=== PATIENT | female | born 1985 | race Caucasian/White ===

== ENCOUNTER 2016-11-26 20:31 | Emergency (ER) | payer OTHER ==
[2016-11-26 20:42] VITALS: BP 120/78
[2016-11-26] MEDS ORDERED: Ketorolac 30 MG/ML SDV IM ONE (21:54)
--- NOTE | 2016-11-27 07:11 | ER ---
The patient is the source of the history. CHIEF COMPLAINT: Suprapubic pain bilaterally for 2 days. HISTORY OF PRESENT ILLNESS: The patient has a history of endometriosis and polycystic ovaries. She started her period today. Has been having pain in bilateral adnexal area. She has been using [id number] Motrin without relief. She took some oxycodone that her casino games dealer provides for her on a p.r.n. basis, again without relief and came to the ER for further evaluation. OTHER PAST MEDICAL HISTORY: Besides PCOS and endometriosis, is sleep disturbance, anxiety, agoraphobia, history of gastric bypass. CURRENT MEDICATIONS: Include iron replacement, B12 replacement, BuSpar. She has recently been on hydrocodone prescribed by Dr. Olvera for a twisted ankle. Ambien extended release and Zithromax 250 mg daily prescribed by her casino games dealer as well as oxycodone p.r.n. prescribed by her casino games dealer. REVIEW OF SYSTEMS: CONSTITUTIONAL: The patient has normal appetite. No fever or chills. EYES: No vision changes. ENT: No headache, no tinnitus, no ear pain or hearing loss. No dizziness, no sore throat. No trouble swallowing. No sores in the mouth. CARDIOVASCULAR: No skipped beats. No chest pain. No dyspnea on exertion. RESPIRATORY: No coughing, no wheezing, no shortness of breath, and no history of sleep apnea. GI: No colicky pain in the abdomen. No diarrhea. No constipation. No bloody stools. : No burning when she urinates. No frequency. No nocturia. ENDOCRINE: No goiters. No history of thyroid or adrenal gland issues. MUSCULOSKELETAL: No history of arthralgia or joint swelling. NEUROLOGIC: No weakness, no fainting, no vertigo. PSYCHIATRIC: History of anxiety, depression, and agoraphobia. HEMATOLOGIC: No issues of clotting disorders. She does have issues with anemia in the past of mixed type B12 and iron. ALLERGIC/IMMUNOLOGIC: No complaints. PHYSICAL EXAMINATION: VITAL SIGNS: Upon admission show blood pressure 120/78, pulse of 78, respirations 18, temperature 98.1, 100% saturated on room air. GENERAL: A well-developed, well-nourished white female, alert and oriented x3, in no acute distress with a flat affect. HEAD AND FACE: Normocephalic without trauma. No palpable pain of the face and sinuses. EYES: Show EOMI, PERRLA. Conjunctivae and lids are normal. ENT: Throat is clear. Nose is clear. Normal TMs bilaterally. NECK: Supple. Trachea is midline. No thyromegaly. PULMONARY: Lungs are clear. No wheezing, no coughing. CARDIOVASCULAR: Regular rate and rhythm. No murmurs, rubs, or gallops. No S3, no S4. ABDOMEN: Soft without any organomegaly. No rebound. No appreciable tenderness with palpation over adnexal or suprapubic area. Bowel sounds x4. BACK: Shows no CVA or cord tenderness. LYMPHATICS: No adenopathy. MUSCULOSKELETAL: Normal gait. Normal motion of the back and extremities. No acute inflammation of joints. NEUROLOGIC: Cranial nerves 2 through 12 are intact. No focal neurologic deficits. PSYCHIATRIC: Mood is flat, judgment is fair. Mental status is intact. Speech is clear, oriented x3. Memory is intact. ASSESSMENT: 1. Bilateral adnexal pain. 2. History of PCOS. 3. History of endometriosis. 4. History of sleep disturbance. 5. History of gastric bypass. 6. History of anxiety. 7. History of agoraphobia. PLAN: CBC, CMP, urine , and UA were obtained. UA was normal except for blood from her menses. No nitrites, no leukocytes. HCG urine was negative. CMP was normal with GFR greater than 60. CBC showed a white count of 12.7 without a shift, 55% segs, 33% lymphs, 11%, monos. H and H of 12 and 36.3, MCV of 83, RDW of 16.9, platelets of 307. The patient will be given Toradol in the emergency room of 30 mg IM. If she does not improve or gets fever or vomiting, she will return to clinic. She will call her casino games dealer in the morning to see if she can be seen later this week. I will defer pain management to her casino games dealer. KUMAR /[phone]
== END 2016-11-26 22:12 | disposition home or self-care (01) ==
LOC: LB.ED 20:31
DX: R10.2 Pelvic and perineal pain (principal); F41.9 Anxiety disorder, unspecified; Z98.84 Bariatric surgery status
CPT/HCPCS: 36415; 80053; 81001; 81025; 85025; 96372; 99284; J1885

== ENCOUNTER 2018-02-20 06:34 | Emergency (ER) | payer MEDICAID, OTHER ==
[2018-02-20] MEDS ORDERED: Acetaminophen/HYDROcodone 325-5 MG Tab ONE (06:40)
[2018-02-20] MEDS ORDERED: Morphine 2 MG/ML Syringe IVPUSH ONE ×3 (07:37→11:03)
[2018-02-20] MEDS ORDERED: diphenhydrAMINE 50 MG/ML SDV IVPUSH ONE (07:38)
[2018-02-20] MEDS ORDERED: Sodium Chloride 0.9% 500 ML IV SCH (07:45)
[2018-02-20] MEDS ORDERED: Ondansetron 4 MG/2 ML SDV IVPUSH ONE (07:49)
[2018-02-20] MEDS ORDERED: Morphine 2 MG/ML Syringe ONE ×3 (08:01→11:11)
[2018-02-20] MEDS ORDERED: diphenhydrAMINE 50 MG/ML SDV ONE (08:01)
[2018-02-20] MEDS ORDERED: Ondansetron 4 MG/2 ML SDV ONE (08:01)
[2018-02-20 10:28] VITALS: BP 159/99
[2018-02-20] MEDS ORDERED: Bupivacaine 0.5% 10 ML SDV ONE ×2 (13:00)
[2018-02-20] MEDS ORDERED: Lidocaine 1% PF 2 ML SDV ONE ×2 (13:00)
--- NOTE | 2018-02-20 13:07 | EDM.PDOC ---
ED HPI GENERAL MEDICAL PROBLEM - General Chief Complaint: General Stated Complaint: PAIN TO MY LEFT SIDE Time Seen by Provider: 02/20/18 07:20 Source of Information: Reports: Patient, Family History Limitations: Reports: No Limitations - History of Present Illness INITIAL COMMENTS - FREE TEXT/NARRATIVE: This is a 34 5/7 GA 32yo F here for excruciating pain of the left side since waking up this morning. She states the pain woke her up. She does not recall ever having this pain and states she was diagnosed with pre-eclampsia and was seen by her OB and had labs yesterday but they were all good. She states the pain is 9/10 on movement and if she lays still it is about 7/10 when not placing any pressure on the left side and laying on her right. Onset: Sudden Duration: Hour(s): Location: Reports: Abdomen Quality: Reports: Ache Severity: Severe Improves with: Reports: None Worsens with: Reports: Movement Associated Symptoms: Reports: No Other Symptoms Left Thoracic Pain Score (Numeric/FACES): 7 - Related Data Allergies Allergy/AdvReac Type Severity Reaction Status Date / Time codeine Allergy Rash Verified 02/20/18 06:51 Home Meds: Home Meds Ferrous Sulfate [Slow Fe] 45 mg PO DAILY 11/26/16 [History] Enoxaparin [Lovenox] 80 mg SUBCUT DAILY 02/20/18 [History] Metoclopramide HCl [Reglan] 10 mg PO TIDMEALS 02/20/18 [History] Vits #93/Iron Fum/FA [ Formula Tablet] 1 each PO DAILY [History] Past Medical History HEENT History: Reports: Impaired Vision, Other (See Below) Other HEENT History: wears eye glasses Cardiovascular History: Reports: Other (See Below) Other Cardiovascular History: Only had hypertension at this time with due to pre-eclampsia Respiratory History: Reports: None Gastrointestinal History: Reports: Other (See Below) Other Gastrointestinal History: gastric bypass Genitourinary History: Reports: None FOUNTAIN SUPERVISOR History: Reports: Endometriosis, Polycystic Ovaries, , Other ( See Below) Other FOUNTAIN SUPERVISOR History: 2 miscarriages; 4 endometrial excisions; 3 other surgeries for endometriosis Musculoskeletal History: Reports: Other (See Below) Other Musculoskeletal History: 2 wrist surgeries Psychiatric History: Reports: Anxiety, Depression, Panic Attack Endocrine/Metabolic History: Reports: None Hematologic History: Reports: B12 Deficiency Oncologic (Cancer) History: Reports: None - Infectious Disease History Infectious Disease History: Reports: Chicken Pox - Past Surgical History HEENT Surgical History: Reports: None GI Surgical History: Reports: Bariatric Procedure Musculoskeletal Surgical History: Reports: Other (See Below) Other Musculoskeletal Surgeries/Procedures:: Left wrist, Bunion on both feet Social & Family History - Family History Family Medical History: Noncontributory - Tobacco Use Smoking Status *Q: Never Smoker Second Hand Smoke Exposure: No - Caffeine Use Caffeine Use: Reports: Coffee, Soda - Recreational Drug Use Recreational Drug Use: No ED ROS GENERAL - Review of Systems Review Of Systems: ROS reveals no pertinent complaints other than HPI. ED EXAM, GENERAL - Physical Exam Exam: See Below Exam Limited By: No Limitations General Appearance: Alert, WD/WN, Moderate Distress Eye Exam: Bilateral Eye: EOMI, PERRL Ears: Normal External Exam Nose: Normal Inspection Throat/Mouth: Normal Inspection Head: Atraumatic, Normocephalic Neck: Normal Inspection Respiratory/Chest: No Respiratory Distress, Lungs Clear, Normal Breath Sounds, Other (rib pain of the 9th and 10th ribs and lower areas of the ribs) Cardiovascular: Normal Peripheral Pulses GI/Abdominal: Normal Bowel Sounds Back Exam: Normal Inspection Extremities: Normal Inspection Neurological: Alert, Oriented Psychiatric: Normal Affect, Normal Mood Skin Exam: Warm, Dry, Intact ED GENERAL MEDICAL PROCEDURES - Additional/Other Procedure(s) Other (Free Text) Procedure(s): Left lateral ribs prepped sterilely and Intercostal nerve block with 2x( 2mL lidocaine 1% 2mL marcaine-0.5% 2mL kenalog 40mg/mL) at ribs 9 and 10 injected with some relief. Patient states she still has some deeper pain with movement. No complications. Course - Vital Signs Last Recorded V/S: Last Vital Signs Temp 36.7 C 02/20/18 06:48 Pulse 94 02/20/18 10:27 Resp 16 02/20/18 08:45 BP 159/99 H 02/20/18 10:27 Pulse Ox 97 02/20/18 10:27 - Orders/Labs/Meds Orders: Active Orders 24 hr Category Date Time Status URINALYSIS W/MICROSCOPIC [UA W/MICROSCOPIC] [URIN] Stat Lab 02/20/18 09:48 Ordered Labs: Laboratory Tests 02/20/18 02/20/18 02/20/18 Range/Units 07:15 07:15 09:48 WBC 15.1 H (4.0-11.0) K/uL RBC 4.39 (3.80-5.80) M/uL Hgb 12.0 (11.5-16.5) g/dL Hct 37.7 (37.0-47.0) % MCV 86 (76-96) fL MCH 27.3 (27.0-32.0) pg MCHC 31.8 (31.0-35.0) g/dL RDW 14.9 (11.0-16.0) % Plt Count 278 (150-500) K/uL MPV 9.1 (6.0-10.0) fL Neut % (Auto) 66.9 (45.0-70.0) % Lymph % (Auto) 21.8 (20.0-40.0) % [place] % (Auto) 10.9 H (3.0-10.0) % Eos % (Auto) 0.3 L (1.0-5.0) % Baso % (Auto) 0.1 (0.0-0.5) % Neut # (Auto) 10.08 H (2.00-7.50) K/uL Lymph # (Auto) 3.29 (1.50-4.00) K/uL [place] # (Auto) 1.65 H (0.20-0.80) K/uL Eos # (Auto) 0.04 (0.04-0.40) K/uL Baso # (Auto) 0.01 L (0.02-0.10) K/uL Sodium 138 (136-145) mmol/L Potassium 3.3 L (3.5-5.1) mmol/L Chloride 106 (98-107) mmol/L Carbon Dioxide 20.8 L D (21.0-32.0) mmol/L Anion Gap 14.5 (5.0-15.0) mmol/L BUN 7 L D (8-26) mg/dL Creatinine 0.95 D (0.55-1.02) mg/dL Est Cr Clr Drug Dosing TNP Estimated GFR (MDRD) > 60 (>60) MLS/MIN BUN/Creatinine Ratio 7.4 (6-25) Glucose 107 H (74-100) mg/dL Calcium 8.1 L (8.5-10.1) mg/dL Total Bilirubin 0.2 D (0.0-1.0) mg/dL AST 18 (15-37) U/L ALT 12 (12-78) U/L Alkaline Phosphatase 158 H (46-116) U/L Troponin I < 0.017 (0.000-0.060) ng/mL Total Protein 6.3 L (6.4-8.2) g/dL Albumin 1.9 L (3.4-5.0) g/dL Globulin 4.4 H (2.2-4.2) g/dL Albumin/Globulin Ratio 0.4 L (0.8-2.0) Urine Color Yellow Urine Appearance Clear (CLEAR) Urine pH 6.0 (5.0-8.0) Ur Specific [place] 1.010 (1.003-1.030) Urine Protein Negative (NEGATIVE) mg/dL Urine Glucose (UA) Negative (NEGATIVE) mg/dL Urine Ketones Negative (NEGATIVE) mg/dL Urine Occult Blood Negative (NEGATIVE) Urine Nitrite Negative (NEGATIVE) Urine Bilirubin Negative (NEGATIVE) Urine Urobilinogen 0.2 (0.2-1.0) E.U./dL Ur Leukocyte Esterase Negative (NEGATIVE) Urine RBC Not seen /HPF Urine WBC 0-5 H /HPF Ur Squamous Epith Cells Moderate /HPF Urine Bacteria Few /HPF Hyaline Casts Occasional /HPF Meds: Medications Discontinued Medications Generic Name Dose Route Start Last Admin Trade Name Nabil PRN Reason Stop Dose Admin Diphenhydramine HCl 25 mg 02/20/18 07:38 02/20/18 08:05 Benadryl IVPUSH 02/20/18 07:39 25 mg ONETIME ONE Administration Diphenhydramine HCl Confirm 02/20/18 08:01 02/20/18 08:11 Benadryl Administered 02/20/18 08:02 Not Given Dose 50 mg .ROUTE .STK-MED ONE Sodium Chloride 500 mls @ 999 mls/hr 02/20/18 07:45 02/20/18 07:46 Normal Saline IV 999 mls/hr ASDIRECTED SALLY Administration Morphine Sulfate 2 mg 02/20/18 07:37 02/20/18 08:00 Morphine IVPUSH 02/20/18 07:38 2 mg ONETIME ONE Administration Morphine Sulfate Confirm 02/20/18 08:01 02/20/18 08:11 Morphine Administered 02/20/18 08:02 Not Given Dose 2 mg .ROUTE .STK-MED ONE Morphine Sulfate 2 mg 02/20/18 08:23 02/20/18 08:26 Morphine IVPUSH 02/20/18 08:24 2 mg ONETIME ONE Administration Morphine Sulfate Confirm 02/20/18 08:29 02/20/18 08:31 Morphine Administered 02/20/18 08:30 Not Given Dose 2 mg .ROUTE .STK-MED ONE Morphine Sulfate 2 mg 02/20/18 11:03 02/20/18 11:12 Morphine IVPUSH 02/20/18 11:04 2 mg ONETIME ONE Administration Morphine Sulfate Confirm 02/20/18 11:11 02/20/18 11:12 Morphine Administered 02/20/18 11:12 Not Given Dose 2 mg .ROUTE .STK-MED ONE Ondansetron HCl 4 mg 02/20/18 07:49 02/20/18 08:14 Zofran IVPUSH 02/20/18 07:50 4 mg ONETIME ONE Administration Ondansetron HCl Confirm 02/20/18 08:01 02/20/18 08:11 Zofran Administered 02/20/18 08:02 Not Given Dose 4 mg .ROUTE .STK-MED ONE - Re-Assessments/Exams Free Text/Narrative Re-Assessment/Exam: Mild improvement with morphine. Trial of intercostal nerve block x 2 ribs showed improved ability for deeper breathing. Departure - Departure Time of Disposition: 11:30 Disposition: Home, Self-Care 01 Condition: Undetermined Clinical Impression: Intercostal muscle pain - Discharge Information Referrals: Lew Carreon DO [Primary Care Provider] - Forms: ED Department Discharge Additional Instructions: - May Take Vicoin one tablet every 6 hours for pain. - Follow up with OB provider at [facility], call first before going there. Counseled on close monitoring. Discussed intercostal muscle strain vs fractured ribs. F/u in ER as needed and f/u with PCP and OB provider as directed. - Problem List & Annotations (1) Intercostal muscle pain SNOMED Code(s): 53323213 Code(s): M79.1 - MYALGIA Status: Acute Priority: High - Problem List Review Problem List Initiated/Reviewed/Updated: Yes - My Orders Last 24 Hours: My Active Orders 02/20/18 09:48 URINALYSIS W/MICROSCOPIC [UA W/MICROSCOPIC] [URIN] Stat - Assessment/Plan Last 24 Hours: My Active Orders 02/20/18 09:48 URINALYSIS W/MICROSCOPIC [UA W/MICROSCOPIC] [URIN] Stat Plan: Patient counseled on labs, urinalysis, FHR, and pain management.
== END 2018-02-20 13:15 | disposition home or self-care (01) ==
LOC: LB.ED 06:34
DX: M79.1 Myalgia (principal); R07.82 Intercostal pain; Z88.5 Allergy status to narcotic agent; Z79.899 Other long term (current) drug therapy
CPT/HCPCS: 36415; 64420; 80053; 81001; 84484; 85025; 93005; 96361; 96374; 96375; 96376; 99282; 99285-25; A9270-GY; J1200; J2001; J2270; J2405; J3490; J7030

== ENCOUNTER 2018-08-31 09:45 | Emergency (ER) | payer BC ==
[2018-08-31] MEDS ORDERED: Ketorolac 30 MG/ML SDV IVPUSH PRN (10:10)
[2018-08-31] MEDS: Sodium Chloride 0.9% 10 ML Syringe FLUSH PRN ×3 (10:20→12:07)
--- NOTE | 2018-08-31 10:41 | EDM.PDOC ---
ED HPI GENERAL MEDICAL PROBLEM - General Chief Complaint: General Stated Complaint: uterus pain Time Seen by Provider: 08/31/18 10:00 Source of Information: Reports: Patient History Limitations: Reports: No Limitations - History of Present Illness INITIAL COMMENTS - FREE TEXT/NARRATIVE: This is a 32yo F here for abdominal pain. Patient has had prior abdominal pain like this due to her endometriosis. She has had 9 prior laparoscopic procedures for her endometriosis. She states that she did well on her OCP but a few months ago stopped as they were trying to conceive. She did ok with her oral pain medications the past few days but last night until today the pain would not improve. Onset: Gradual Duration: Day(s):, Constant, Getting Worse Location: Reports: Abdomen, Pelvis Quality: Reports: Pressure, Sharp, Stabbing Improves with: Reports: None Worsens with: Reports: None Associated Symptoms: Reports: No Other Symptoms - Related Data Allergies Allergy/AdvReac Type Severity Reaction Status Date / Time codeine Allergy Rash Verified 02/20/18 06:51 Home Meds: Home Meds Ferrous Sulfate [Slow Fe] 300 mg PO DAILY 11/26/16 [History] Cyanocobalamin (Vitamin B-12) [Cyanocobalamin Injection] 1,000 mcg IM ASDIRECTED 08/31/18 [History] Mirtazapine 30 mg PO DAILY 08/31/18 [History] Zolpidem Tartrate [Zolpidem Tartrate ER] 6.25 mg PO DAILY 08/31/18 [History] buPROPion [buPROPion XL] 150 mg PO DAILY 08/31/18 [History] Past Medical History HEENT History: Reports: Impaired Vision, Other (See Below) Other HEENT History: wears eye glasses Cardiovascular History: Reports: Other (See Below) Other Cardiovascular History: Only had hypertension at this time with due to pre-eclampsia Respiratory History: Reports: None Gastrointestinal History: Reports: Other (See Below) Other Gastrointestinal History: gastric bypass Genitourinary History: Reports: None HYDRAULIC TESTER History: Reports: Endometriosis, Polycystic Ovaries, , Other ( See Below) Other HYDRAULIC TESTER History: 2 miscarriages; 4 endometrial excisions; 3 other surgeries for endometriosis Musculoskeletal History: Reports: Other (See Below) Other Musculoskeletal History: 2 wrist surgeries Psychiatric History: Reports: Anxiety, Depression, Panic Attack Endocrine/Metabolic History: Reports: None Hematologic History: Reports: B12 Deficiency Oncologic (Cancer) History: Reports: None - Infectious Disease History Infectious Disease History: Reports: Chicken Pox - Past Surgical History HEENT Surgical History: Reports: None GI Surgical History: Reports: Bariatric Procedure Musculoskeletal Surgical History: Reports: Other (See Below) Other Musculoskeletal Surgeries/Procedures:: Left wrist, Bunion on both feet Social & Family History - Family History Family Medical History: Noncontributory - Caffeine Use Caffeine Use: Reports: Coffee, Soda ED ROS GENERAL - Review of Systems Review Of Systems: ROS reveals no pertinent complaints other than HPI. Constitutional: Reports: No Symptoms HEENT: Reports: No Symptoms Respiratory: Reports: No Symptoms Cardiovascular: Reports: No Symptoms Endocrine: Reports: No Symptoms GI/Abdominal: Reports: Abdominal Pain : Reports: No Symptoms Musculoskeletal: Reports: No Symptoms Skin: Reports: No Symptoms ED EXAM, GENERAL - Physical Exam Exam: See Below Exam Limited By: No Limitations General Appearance: Alert, WD/WN, Moderate Distress Eye Exam: Bilateral Eye: EOMI, PERRL Ears: Normal External Exam Nose: Normal Inspection Throat/Mouth: Normal Inspection Head: Atraumatic, Normocephalic Neck: Normal Inspection Respiratory/Chest: No Respiratory Distress, Lungs Clear, Normal Breath Sounds Cardiovascular: Normal Peripheral Pulses, Regular Rate, Rhythm GI/Abdominal: Normal Bowel Sounds, Soft, Tender (lower abdomen and pelvic region ) Back Exam: Normal Inspection Course - Vital Signs Last Recorded V/S: Last Vital Signs Temp 37.1 C 08/31/18 10:46 Pulse 119 H 08/31/18 10:46 Resp 16 08/31/18 10:46 BP 147/78 H 08/31/18 10:46 Pulse Ox 100 08/31/18 10:46 - Orders/Labs/Meds Orders: Active Orders 24 hr Category Date Time Status HYDROmorphone [Dilaudid] Med 08/31/18 11:12 Active 2 mg IVPUSH Q4H PRN Ketorolac [Toradol] Med 08/31/18 10:10 Active 30 mg IVPUSH Q8H PRN Sodium Chloride 0.9% [Saline Flush] Med 08/31/18 10:09 Active 10 ml FLUSH ASDIRECTED PRN Peripheral IV Insertion Adult [OM.PC] Routine Oth 08/31/18 10:09 Ordered Medication Orders Hydromorphone HCl (Dilaudid) 2 mg IVPUSH Q4H PRN PRN Reason: Pain Last Admin: 08/31/18 11:05 Dose: 2 mg Ketorolac Tromethamine (Toradol) 30 mg IVPUSH Q8H PRN PRN Reason: Pain Stop: 09/05/18 10:10 Last Admin: 08/31/18 10:23 Dose: 30 mg Sodium Chloride (Saline Flush) 10 ml FLUSH ASDIRECTED PRN PRN Reason: Keep Vein Open Last Admin: 08/31/18 12:07 Dose: 10 ml Admin: 08/31/18 10:25 Dose: 10 ml Admin: 08/31/18 10:20 Dose: 10 ml Labs: Laboratory Tests 08/31/18 08/31/18 Range/Units 10:02 10:02 WBC 12.2 H (4.0-11.0) K/uL RBC 4.04 (3.80-5.80) M/uL Hgb 10.1 L (11.5-16.5) g/dL Hct 32.3 L (37.0-47.0) % MCV 80 (76-96) fL MCH 25.0 L (27.0-32.0) pg MCHC 31.3 (31.0-35.0) g/dL RDW 16.0 (11.0-16.0) % Plt Count 422 (150-500) K/uL MPV 8.4 (6.0-10.0) fL Neut % (Auto) 67.8 (45.0-70.0) % Lymph % (Auto) 20.2 (20.0-40.0) % [place] % (Auto) 9.6 (3.0-10.0) % Eos % (Auto) 2.1 (1.0-5.0) % Baso % (Auto) 0.3 (0.0-0.5) % Neut # (Auto) 8.27 H (2.00-7.50) K/uL Lymph # (Auto) 2.46 (1.50-4.00) K/uL [place] # (Auto) 1.17 H (0.20-0.80) K/uL Eos # (Auto) 0.25 (0.04-0.40) K/uL Baso # (Auto) 0.04 (0.02-0.10) K/uL Sodium 142 (136-145) mmol/L Potassium 4.0 (3.5-5.1) mmol/L Chloride 103 (98-107) mmol/L Carbon Dioxide 25.5 (21.0-32.0) mmol/L Anion Gap 17.5 H (5.0-15.0) mmol/L BUN 7 L D (8-26) mg/dL Creatinine 0.71 (0.55-1.02) mg/dL Est Cr Clr Drug Dosing TNP Estimated GFR (MDRD) > 60 (>60) MLS/MIN BUN/Creatinine Ratio 9.9 (6-25) Glucose 103 H (74-100) mg/dL Calcium 8.1 L (8.5-10.1) mg/dL Total Bilirubin 0.1 D (0.0-1.0) mg/dL AST 13 L (15-37) U/L ALT 23 (12-78) U/L Alkaline Phosphatase 141 H (46-116) U/L Total Protein 6.8 (6.4-8.2) g/dL Albumin 3.1 L (3.4-5.0) g/dL Globulin 3.7 (2.2-4.2) g/dL Albumin/Globulin Ratio 0.8 (0.8-2.0) Lipase 173 (73-393) U/L Meds: Medications Generic Name Dose Route Start Last Admin Trade Name Freq PRN Reason Stop Dose Admin Hydromorphone HCl 2 mg 08/31/18 11:12 08/31/18 11:05 Dilaudid IVPUSH 2 mg Q4H PRN Administration Pain Ketorolac Tromethamine 30 mg 08/31/18 10:10 08/31/18 10:23 Toradol IVPUSH 09/05/18 10:10 30 mg Q8H PRN Administration Pain Sodium Chloride 10 ml 08/31/18 10:09 08/31/18 12:07 Saline Flush FLUSH 10 ml ASDIRECTED PRN Administration Keep Vein Open Discontinued Medications Generic Name Dose Route Start Last Admin Trade Name Freq PRN Reason Stop Dose Admin Hydromorphone HCl Confirm 08/31/18 11:06 08/31/18 11:14 Dilaudid Administered 08/31/18 11:07 Not Given Dose 2 mg .ROUTE .STK-MED ONE Hydromorphone HCl 2 mg 08/31/18 11:58 08/31/18 12:06 Dilaudid IVPUSH 08/31/18 11:59 2 mg ONETIME ONE Administration Hydromorphone HCl Confirm 08/31/18 12:03 Dilaudid Administered 08/31/18 12:04 Dose 2 mg .ROUTE .STK-MED ONE Hydromorphone HCl Confirm 08/31/18 12:41 Dilaudid Administered 08/31/18 12:42 Dose 2 mg .ROUTE .STK-MED ONE Hydromorphone HCl 2 mg 08/31/18 12:42 08/31/18 12:43 Dilaudid IVPUSH 08/31/18 12:43 2 mg ONETIME ONE Administration Departure - Departure Time of Disposition: 13:02 Disposition: Home, Self-Care 01 Condition: Fair Clinical Impression: Endometriosis determined by laparoscopy, Pelvic pain - Discharge Information Instructions: Oxycodone tablets or capsules Referrals: PCP,None [Primary Care Provider] - Forms: ED Department Discharge Care Plan Goals: Keep appointment with HYDRAULIC TESTER doc as planned. Take oxycodone that you have and can use those dispensed when you run out. Call clinic for Rx on saturday. - Problem List & Annotations (1) Endometriosis of pelvis SNOMED Code(s): 51835680 Code(s): N80.3 - ENDOMETRIOSIS OF PELVIC PERITONEUM Status: Acute Priority: High Current Visit: Yes (2) Endometriosis determined by laparoscopy SNOMED Code(s): 355838491 Code(s): N80.9 - ENDOMETRIOSIS, UNSPECIFIED Status: Acute Priority: High Current Visit: Yes (3) Pelvic pain SNOMED Code(s): 93225965 Code(s): R10.2 - PELVIC AND PERINEAL PAIN Status: Acute Priority: High Current Visit: Yes - Problem List Review Problem List Initiated/Reviewed/Updated: Yes - My Orders Last 24 Hours: My Active Orders 08/31/18 10:09 Sodium Chloride 0.9% [Saline Flush] 10 ml FLUSH ASDIRECTED PRN Peripheral IV Insertion Adult [OM.PC] Routine 08/31/18 10:10 Ketorolac [Toradol] 30 mg IVPUSH Q8H PRN 08/31/18 11:12 HYDROmorphone [Dilaudid] 2 mg IVPUSH Q4H PRN - Assessment/Plan Last 24 Hours: My Active Orders 08/31/18 10:09 Sodium Chloride 0.9% [Saline Flush] 10 ml FLUSH ASDIRECTED PRN Peripheral IV Insertion Adult [OM.PC] Routine 08/31/18 10:10 Ketorolac [Toradol] 30 mg IVPUSH Q8H PRN 08/31/18 11:12 HYDROmorphone [Dilaudid] 2 mg IVPUSH Q4H PRN Plan: Patient counseled on supportive and conservative care. Patient to continue on her oral liquid oxycodone at at higher dose as directed and percocet if she runs out. F/u tomorrow in clinic for a refill prescription and close monitoring. Patient to continue f/u with her OB specialist on Sep 09. Discussed rtc or ER as needed.
[2018-08-31] MEDS ORDERED: Acetaminophen/oxyCODONE 325-5 MG Tab ONE (10:50)
[2018-08-31] MEDS ORDERED: HYDROmorphone 2 MG/ML Syringe ONE ×3 (11:06→12:41)
[2018-08-31] MEDS ORDERED: HYDROmorphone 4 MG/ML Syringe IVPUSH PRN (11:12)
[2018-08-31] MEDS ORDERED: HYDROmorphone 2 MG/ML Syringe IVPUSH ONE ×2 (11:58→12:42)
[2018-08-31 19:04] VITALS: BP 111/75
== END 2018-08-31 12:45 | disposition home or self-care (01) ==
LOC: LB.ED 09:45
DX: N80.3 Endometriosis of pelvic peritoneum (principal); E28.2 Polycystic ovarian syndrome; F41.9 Anxiety disorder, unspecified; F32.9 Major depressive disorder, single episode, unspecified; F41.0 Panic disorder [episodic paroxysmal anxiety]; E53.8 Deficiency of other specified B group vitamins; Z98.84 Bariatric surgery status; Z98.890 Other specified postprocedural states; Z79.899 Other long term (current) drug therapy; Z88.5 Allergy status to narcotic agent
CPT/HCPCS: 36415; 80053; 83690; 85025; 96374; 96375; 96376; 99284; A9270; J1170; J1885

== ENCOUNTER 2019-01-28 18:56 | Emergency (ER) | payer BC ==
[2019-01-28] MEDS ORDERED: Acetaminophen/oxyCODONE 325-5 MG Tab ONE (19:00)
--- NOTE | 2019-01-30 10:59 | ER ---
REASON FOR EMERGENCY ROOM VISIT: Lower abdominal pain with history of endometriosis. HISTORY OF PRESENT ILLNESS: This 33-year-old woman has had a longstanding history of significant difficulties related to her endometriosis. These difficulties have necessitated numerous operations in the past. She last saw Dr. Olvera for pain related to her diverticulosis manifested by pelvic pain, which is her usual manifestation. She has had her endometriosis since the age of 17. When she saw Dr[address] Olvera 5 days ago, she was given a prescription for 50 tablets of hydrocodone. She states that it worked quite well over the weekend, but throughout the day today, it did not seem to be helping her very much and pain has been largely untouched. She has not had any nausea or vomiting. Denies any fever, diarrhea, or constipation. She does not have any irritative voiding symptoms or dysuria. Her pain is in her lower pelvic area. It is located in the midline and slightly to the left of the midline. Her last normal menstrual period was on Saturday. She is not on any oral contraceptives and they are not using any control, as she is trying to get . She is 1, para 1. She has not had any fever or chills. She and her are contemplating continuing to try to conceive versus hysterectomy because of the pain. PAST MEDICAL HISTORY: Significant for: 1. Laparoscopic surgery x3 for ablation with cautery. 2. History of nerve ablation for pelvic pain. 3. D and C x2. 4. Uterine "rupture" following her last delivery in February. 5. 1, para 1. MEDICATIONS: Her medications at this time include hydrocodone, Wellbutrin, mirtazapine, and Ambien. ALLERGIES: NONE TO MEDICATIONS. REVIEW OF SYSTEMS: All pertinent positives and negatives as listed in the HPI. PHYSICAL EXAMINATION: GENERAL: She is a pleasant woman, who appears to be somewhat uncomfortable, but certainly in no acute distress. HEENT: No scleral icterus is noted. Oropharynx is normal. Neck is supple. No adenopathy. No adenopathy. Chest is clear to auscultation. CARDIAC: Regular rate without murmur. Abdomen is nondistended. Bowel sounds are present. Her abdomen is soft. Superficial and deep palpation with no guarding, rebound, or percussion tenderness. She was only mildly uncomfortable to deep palpation. A pelvic examination was not performed. EXTREMITIES: Unremarkable with normal pulses. No edema. SKIN: No rashes. IMPRESSION: Pelvic pain secondary to endometriosis. PLAN: She has taken oxycodone in the past when she has had breakthrough pain from this and we will go ahead and give her oxycodone 5 mg with acetaminophen, dispense #10, one every 4 hours p.r.n. pain. She knows that should she run out of these over the next couple of days, she can go ahead and take 2 hydrocodone if needed every 4 hours, but not take these along with oxycodone. She understands this. She assured me that she can get in to see her physician, Dr. Olvera, on Saturday (day after tomorrow). All questions were answered. They understand and agree with this plan. DAMIEN /[id number] MY
== END 2019-01-28 19:25 | disposition home or self-care (01) ==
LOC: LB.ED 18:56
DX: N80.9 Endometriosis, unspecified (principal)
CPT/HCPCS: 99283; A9270

== ENCOUNTER 2019-02-21 08:53 | Emergency (ER) | payer BC ==
[2019-02-21 09:07] VITALS: BP 96/55; PULSE 91
[2019-02-21] MEDS ORDERED: Ondansetron 4 MG Tab.DIS PO ONE (09:25)
[2019-02-21] MEDS ORDERED: Ketorolac 60 MG/2 ML SDV IM ONE (09:25)
[2019-02-21] MEDS ORDERED: Acetaminophen/HYDROcodone 325-5 MG Tab ONE (09:30)
[2019-02-21] MEDS ORDERED: Ketorolac 10 MG Tab ONE ×2 (09:30→09:38)
[2019-02-21] MEDS ORDERED: Ondansetron 4 MG Tab.DIS ONE ×2 (09:30→09:35)
[2019-02-21] MEDS ORDERED: Ketorolac 60 MG/2 ML SDV ONE (09:35)
--- NOTE | 2019-02-21 09:41 | EDM.PDOC ---
ED HPI GENERAL MEDICAL PROBLEM - General Chief Complaint: Abdominal Pain Stated Complaint: Lower Abdominal Pain Time Seen by Provider: 02/21/19 09:00 Source of Information: Reports: Patient History Limitations: Reports: No Limitations - History of Present Illness INITIAL COMMENTS - FREE TEXT/NARRATIVE: Pt is a 33 year old female with history of endometriosis and adenomyosis for past several years now. She claims her periods are very painful. She takes vicodin 10/365 every 6 hrs as needed with her periods. But she has run out of her pain meds. Has been feeling nausea when the pain gets intense. Tares her pain at 8/10 now in the emergency room.She started her periods yesterday, the pain she is having is similar to her previous periods, but is more intense because of her not having pain meds. Pt's INSPECTOR SHELLS is Dr.Bass calvillo [place], [place], and her PCP is who manages her pain meds. Onset Date: 02/20/19 Duration: Getting Worse, Intermittent, Waxing/Waning Location: Reports: Pelvis Quality: Reports: Ache Severity: Moderate Improves with: Reports: Medication Worsens with: Reports: None Associated Symptoms: Denies: Confusion, Chest Pain, Cough, Diaphoresis, Fever/ Chills, Nausea/Vomiting, Rash, Seizure, Shortness of Breath, Syncope, Weakness Treatments OIL WELL GUN PERFORATOR OPERATOR: Reports: Other (see below) Other Treatments OIL WELL GUN PERFORATOR OPERATOR: warm pack to abdomen; Vicodin - Related Data Allergies Allergy/AdvReac Type Severity Reaction Status Date / Time codeine Allergy Rash Verified 02/21/19 09:00 Home Meds: Home Meds Aspirin 81 mg PO DAILY 08/31/18 [History] Cyanocobalamin (Vitamin B-12) [Cyanocobalamin Injection] 1,000 mcg IM ASDIRECTED 08/31/18 [History] LORazepam 1 mg PO BID PRN 08/31/18 [History] Mirtazapine 30 mg PO QPM 08/31/18 [History] Zolpidem Tartrate [Zolpidem Tartrate ER] 6.25 mg PO QPM 08/31/18 [History] Ferrous Sulfate [Slow Fe] 142 mg PO TID 02/21/19 [History] Hydrocodone/Acetaminophen [Hydrocodon-Acetaminophn 10-325] 1 - 2 tab PO Q4H PRN 02/21/19 [History] PNV95/Ferrous Fumarate/FA [ Tablet] 1 each PO DAILY 02/21/19 [History] buPROPion HCl [Wellbutrin Xl] 300 mg PO DAILY 02/21/19 [History] Past Medical History HEENT History: Reports: Impaired Vision, Other (See Below) Other HEENT History: wears eye glasses Cardiovascular History: Reports: Other (See Below) Other Cardiovascular History: hypertension due to pre-eclampsia Respiratory History: Reports: None Other Respiratory History: history of pulmonary embolism while Gastrointestinal History: Reports: None Other Gastrointestinal History: gastric bypass Genitourinary History: Reports: None IMPOSER History: Reports: Endometriosis, Polycystic Ovaries, , Other ( See Below) Other IMPOSER History: 2 miscarriages Musculoskeletal History: Reports: Other (See Below) Other Musculoskeletal History: 2 wrist surgeries Psychiatric History: Reports: Anxiety, Depression, Panic Attack Other Psychiatric History: Major depressive disorder, recurrent, Panic disorder with agoraphobia, ADHD predominantly inattentive type Endocrine/Metabolic History: Reports: None Hematologic History: Reports: Anemia, B12 Deficiency Other Hematologic History: Serpine1 4G/5G genotype, 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 Oncologic (Cancer) History: Reports: None Dermatologic History: Reports: Eczema - Infectious Disease History Infectious Disease History: Reports: Chicken Pox - Past Surgical History HEENT Surgical History: Reports: None Cardiovascular Surgical History: Reports: None GI Surgical History: Reports: Bariatric Procedure Female Surgical History: Reports: Endometrial Ablation Musculoskeletal Surgical History: Reports: Other (See Below) Other Musculoskeletal Surgeries/Procedures:: Left wrist, Bunion on both feet Social & Family History - Family History Family Medical History: Noncontributory - Caffeine Use Caffeine Use: Reports: Coffee, Soda ED ROS GENERAL - Review of Systems Review Of Systems: See Below Constitutional: Denies: Fever, Chills, Weakness HEENT: Denies: Rhinitis, Throat Pain Respiratory: Denies: Shortness of Breath, Pleuritic Chest Pain, Cough, Sputum Cardiovascular: Denies: Chest Pain, Lightheadedness GI/Abdominal: Reports: Abdominal Pain. Denies: Nausea, Vomiting : Denies: Dysuria, Frequency Skin: Denies: Bruising, Pruritis, Rash ED EXAM, GENERAL - Physical Exam Exam: See Below Exam Limited By: No Limitations General Appearance: Alert, WD/WN, No Apparent Distress Eye Exam: Bilateral Eye: EOMI, PERRL Ears: Normal External Exam, Normal Canal, Hearing Grossly Normal, Normal TMs Ear Exam: Bilateral Ear: Auricle Normal, Canal Normal, TM normal Nose: Normal Inspection, Normal Mucosa, No Blood Throat/Mouth: Normal Inspection, Normal Lips, Normal Teeth, Normal Gums, Normal Oropharynx, Normal Voice, No Airway Compromise Head: Atraumatic, Normocephalic Neck: Normal Inspection, Supple, Non-Tender, Full Range of Motion Respiratory/Chest: No Respiratory Distress, Lungs Clear, Normal Breath Sounds, No Accessory Muscle Use, Chest Non-Tender Cardiovascular: Normal Peripheral Pulses, Regular Rate, Rhythm, No Edema, No Gallop, No JVD, No Murmur, No Rub GI/Abdominal: Normal Bowel Sounds, Soft, Non-Tender, No Organomegaly, No Distention, No Abnormal Bruit, No Mass (Female) Exam: Other (deferred as she is on her periods.) Course - Vital Signs Text/Narrative:: 33 year old female has history of adenomyosis and endometriosis for years. Her symptoms occur with every periods. Painful for 3-4 days every month. She has run out of her meds. Clinical exam is stable. Rates her cramps at 8/10 now. She did receive Toradol 60mg IM and zofran 4mg S/l for her pain. Also she has been sent home on toradol 10mg every 8 hrs as needed for pain. Zofran 4mg as needed for nausea. Also she was given vicodin 5/325 to use one every 6 hrs as needed for sever pain. If she is in such severe pain she has moderate to severe endometriosis. I have advised her to followup with her OB-account receivable associate and discuss other options including antihormonal therapy for endometriosis. Pt understands and agrees with plan. Last Recorded V/S: Last Vital Signs Temp 98.3 F 02/21/19 09:06 Pulse 91 02/21/19 09:06 Resp 18 02/21/19 09:06 BP 96/55 L 02/21/19 09:06 Pulse Ox 99 02/21/19 09:06 - Orders/Labs/Meds Meds: Medications Discontinued Medications Generic Name Dose Route Start Last Admin Trade Name Freq PRN Reason Stop Dose Admin Ketorolac Tromethamine 60 mg 02/21/19 09:25 Toradol IM 07/27/19 09:26 ONETIME ONE Ketorolac Tromethamine Confirm 02/21/19 09:35 Toradol Administered 02/21/19 09:36 Dose 60 mg .ROUTE .STK-MED ONE Ondansetron HCl 4 mg 02/21/19 09:25 Zofran Odt PO 02/21/19 09:26 ONETIME ONE Ondansetron HCl Confirm 02/21/19 09:35 Zofran Odt Administered 02/21/19 09:36 Dose 4 mg .ROUTE .STK-MED ONE Departure - Departure Time of Disposition: 09:50 Disposition: Home, Self-Care 01 Condition: Fair Clinical Impression: Endometriosis - Discharge Information Referrals: PCP,None [Primary Care Provider] - Additional Instructions: 33 year old female has history of adenomyosis and endometriosis for years. Her symptoms occur with every periods. Painful for 3-4 days every month. She has run out of her meds. Clinical exam is stable. Rates her cramps at 8/10 now. She did receive Toradol 60mg IM and zofran 4mg S/l for her pain. Also she has been sent home on toradol 10mg every 8 hrs as needed for pain. Zofran 4mg as needed for nausea. Also she was given vicodin 5/325 to use one every 6 hrs as needed for severe pain. If she is in such severe pain she has moderate to severe endometriosis. I have advised her to followup with her OB-account receivable associate and discuss other options including antihormonal therapy for endometriosis. Pt understands and agrees with plan. - Problem List & Annotations (1) Endometriosis of pelvis SNOMED Code(s): 61182821 Code(s): N80.3 - ENDOMETRIOSIS OF PELVIC PERITONEUM Status: Acute Priority: High Current Visit: No - Problem List Review Problem List Initiated/Reviewed/Updated: Yes - Assessment/Plan Assessment:: Endometriosis Plan: 33 year old female has history of adenomyosis and endometriosis for years. Her symptoms occur with every periods. Painful for 3-4 days every month. She has run out of her meds. Clinical exam is stable. Rates her cramps at 8/10 now. She did receive Toradol 60mg IM and zofran 4mg S/l for her pain. Also she has been sent home on toradol 10mg every 8 hrs as needed for pain. Zofran 4mg as needed for nausea. Also she was given vicodin 5/325 to use one every 6 hrs as needed for sever pain. If she is in such severe pain she has moderate to severe endometriosis. I have advised her to followup with her OB-account receivable associate and discuss other options including antihormonal therapy for endometriosis. Pt understands and agrees with plan.
== END 2019-02-21 09:51 | disposition home or self-care (01) ==
LOC: LB.ED 08:53
DX: N80.9 Endometriosis, unspecified (principal); F41.9 Anxiety disorder, unspecified; F32.9 Major depressive disorder, single episode, unspecified; Z79.82 Long term (current) use of aspirin; Z79.899 Other long term (current) drug therapy; Z88.5 Allergy status to narcotic agent
CPT/HCPCS: 96372; 99283; A9270; J1885

== ENCOUNTER 2019-04-06 17:48 | Emergency (ER) | payer BC ==
[2019-04-06] MEDS ORDERED: HYDROmorphone 2 MG/ML Syringe SUBCUT STA ×2 (18:10→18:32)
[2019-04-06 18:15] VITALS: BP 120/90; PULSE 88
[2019-04-06] MEDS ORDERED: HYDROmorphone 2 MG/ML SDV ONE (18:36)
[2019-04-06] MEDS ORDERED: Acetaminophen/oxyCODONE 325-5 MG Tab ONE (19:00)
--- NOTE | 2019-04-07 16:58 | EDM.PDOC ---
ED HPI GENERAL MEDICAL PROBLEM - General Chief Complaint: General Stated Complaint: ABD PAIN Time Seen by Provider: 04/06/19 18:00 - History of Present Illness INITIAL COMMENTS - FREE TEXT/NARRATIVE: This is a 33yo F here for abdominal pain. She has had this pain in the past due to her endometriosis and it is worsened all day today. Onset: Gradual Duration: Hour(s): Location: Reports: Abdomen Treatments GROUND SUPPORT EQUIPMENT FITTER: Reports: Acetaminophen - Related Data Allergies Allergy/AdvReac Type Severity Reaction Status Date / Time codeine Allergy Rash Verified 02/21/19 09:00 Home Meds: Home Meds Aspirin 81 mg PO DAILY 08/31/18 [History] Cyanocobalamin (Vitamin B-12) [Cyanocobalamin Injection] 1,000 mcg IM ASDIRECTED 08/31/18 [History] LORazepam 1 mg PO BID PRN 08/31/18 [History] Mirtazapine 30 mg PO QPM 08/31/18 [History] Zolpidem Tartrate [Zolpidem Tartrate ER] 6.25 mg PO QPM 08/31/18 [History] Ferrous Sulfate [Slow Fe] 142 mg PO TID 02/21/19 [History] Hydrocodone/Acetaminophen [Hydrocodon-Acetaminophn 10-325] 1 - 2 tab PO Q4H PRN 02/21/19 [History] PNV95/Ferrous Fumarate/FA [ Tablet] 1 each PO DAILY 02/21/19 [History] buPROPion HCl [Wellbutrin Xl] 300 mg PO DAILY 02/21/19 [History] Past Medical History HEENT History: Reports: Impaired Vision, Other (See Below) Other HEENT History: wears eye glasses Cardiovascular History: Reports: Other (See Below) Other Cardiovascular History: hypertension due to pre-eclampsia Respiratory History: Reports: None Other Respiratory History: history of pulmonary embolism while Gastrointestinal History: Reports: None Other Gastrointestinal History: gastric bypass Genitourinary History: Reports: None CAFETERIA AIDE History: Reports: Endometriosis, Polycystic Ovaries, , Other ( See Below) Other CAFETERIA AIDE History: 2 miscarriages Musculoskeletal History: Reports: Other (See Below) Other Musculoskeletal History: 2 wrist surgeries Psychiatric History: Reports: Anxiety, Depression, Panic Attack Other Psychiatric History: Major depressive disorder, recurrent, Panic disorder with agoraphobia, ADHD predominantly inattentive type Endocrine/Metabolic History: Reports: None Hematologic History: Reports: Anemia, B12 Deficiency Other Hematologic History: Serpine1 4G/5G genotype, 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 Oncologic (Cancer) History: Reports: None Dermatologic History: Reports: Eczema - Infectious Disease History Infectious Disease History: Reports: Chicken Pox - Past Surgical History HEENT Surgical History: Reports: None Cardiovascular Surgical History: Reports: None GI Surgical History: Reports: Bariatric Procedure Female Surgical History: Reports: Endometrial Ablation Musculoskeletal Surgical History: Reports: Other (See Below) Other Musculoskeletal Surgeries/Procedures:: Left wrist, Bunion on both feet Social & Family History - Family History Family Medical History: Noncontributory - Caffeine Use Caffeine Use: Reports: Coffee, Soda ED ROS GENERAL - Review of Systems Review Of Systems: ROS reveals no pertinent complaints other than HPI. ED EXAM, GENERAL - Physical Exam Exam: See Below Exam Limited By: No Limitations General Appearance: Alert, WD/WN, Moderate Distress Ears: Normal External Exam Throat/Mouth: Normal Inspection Head: Atraumatic, Normocephalic Neck: Normal Inspection Respiratory/Chest: No Respiratory Distress, Lungs Clear GI/Abdominal: Tender Course - Vital Signs Last Recorded V/S: Last Vital Signs Temp 37.1 C 04/06/19 18:14 Pulse 88 04/06/19 18:14 Resp 18 04/06/19 18:14 BP 120/90 04/06/19 18:14 Pulse Ox 100 04/06/19 18:14 - Orders/Labs/Meds Meds: Medications Discontinued Medications Generic Name Dose Route Start Last Admin Trade Name Nabil PRN Reason Stop Dose Admin Hydromorphone HCl 1 mg 04/06/19 18:10 04/06/19 18:10 Dilaudid SUBCUT 04/06/19 18:11 1 mg NOW STA Administration Hydromorphone HCl Confirm 04/06/19 18:36 Dilaudid Administered 04/06/19 18:37 Dose 2 mg .ROUTE .STK-MED ONE Hydromorphone HCl 1 mg 04/06/19 18:32 04/06/19 18:34 Dilaudid SUBCUT 04/06/19 18:33 1 mg NOW STA Administration Oxycodone/Acetaminophen 10 tab 04/06/19 19:00 Percocet 325-5 Mg .ROUTE 04/06/19 19:01 .STK-MED ONE Departure - Departure Time of Disposition: 18:45 Disposition: Home, Self-Care 01 Condition: Good Clinical Impression: Endometriosis - Discharge Information Instructions: Endometriosis Referrals: PCP,None [Primary Care Provider] - Forms: ED Department Discharge Additional Instructions: Take Oxycodone 10mg PO every 4-6 hours as needed for abd pain. Return to clinic or ER if symptoms do not improve or increase. - Problem List & Annotations (1) Endometriosis SNOMED Code(s): 292284617 Code(s): N80.9 - ENDOMETRIOSIS, UNSPECIFIED Status: Acute Priority: High - Problem List Review Problem List Initiated/Reviewed/Updated: Yes - Assessment/Plan Plan: Counseled on medication and management and f/u with OB as routine. Discussed supportive care and f/u if symptoms persist.
== END 2019-04-06 18:37 | disposition home or self-care (01) ==
LOC: LB.ED 17:48
DX: N80.9 Endometriosis, unspecified (principal); I10 Essential (primary) hypertension; F41.0 Panic disorder [episodic paroxysmal anxiety]; D64.9 Anemia, unspecified; F32.9 Major depressive disorder, single episode, unspecified; Z88.5 Allergy status to narcotic agent; Z79.82 Long term (current) use of aspirin; Z79.899 Other long term (current) drug therapy
CPT/HCPCS: 96372; 99283; A9270; J1170

== ENCOUNTER 2019-04-11 18:47 | Emergency (ER) | payer BC ==
[2019-04-11] MEDS ORDERED: Acetaminophen/HYDROcodone 325-5 MG Tab ONE (19:00)
[2019-04-11] MEDS ORDERED: HYDROmorphone 2 MG/ML Syringe IVPUSH ONE (19:00)
--- NOTE | 2019-04-11 19:07 | EDM.PDOC ---
ED HPI GENERAL MEDICAL PROBLEM - General Chief Complaint: General Stated Complaint: ABD PAIN Time Seen by Provider: 04/11/19 18:55 Source of Information: Reports: Patient History Limitations: Reports: No Limitations - History of Present Illness INITIAL COMMENTS - FREE TEXT/NARRATIVE: This patient presents to the ED for evaluation of pelvic pain. She has a history of endometriosis and has been having an increase in her pain for the past couple of weeks. She was seen in the ED earlier this week for the same concern. She was able to get some relief from the Dilaudid given in the ED but the opioids given at discharge have not been treating the pain. She states she took 2 Vicodin tablets today but they did not help.She presents this evening because the pain has been more severe today. She has also had some nausea with some vomiting episodes. Onset: Gradual Onset Date: 04/06/19 Duration: Getting Worse Location: Reports: Pelvis Improves with: Reports: None Associated Symptoms: Reports: No Other Symptoms - Related Data Allergies Allergy/AdvReac Type Severity Reaction Status Date / Time codeine Allergy Rash Verified 04/11/19 19:39 Home Meds: Home Meds Aspirin 81 mg PO DAILY 08/31/18 [History] Cyanocobalamin (Vitamin B-12) [Cyanocobalamin Injection] 1,000 mcg IM ASDIRECTED 08/31/18 [History] LORazepam 1 mg PO BID PRN 08/31/18 [History] Mirtazapine 30 mg PO QPM 08/31/18 [History] Zolpidem Tartrate [Zolpidem Tartrate ER] 6.25 mg PO QPM 08/31/18 [History] Ferrous Sulfate [Slow Fe] 142 mg PO TID 02/21/19 [History] PNV95/Ferrous Fumarate/FA [ Tablet] 1 each PO DAILY 02/21/19 [History] buPROPion HCl [Wellbutrin Xl] 300 mg PO DAILY 02/21/19 [History] oxyCODONE 5 mg PO Q4HR PRN 04/11/19 [History] Past Medical History HEENT History: Reports: Impaired Vision, Other (See Below) Other HEENT History: wears eye glasses Cardiovascular History: Reports: Other (See Below) Other Cardiovascular History: hypertension due to pre-eclampsia Respiratory History: Reports: None Other Respiratory History: history of pulmonary embolism while Gastrointestinal History: Reports: None Other Gastrointestinal History: gastric bypass Genitourinary History: Reports: None INSPECTOR POISING History: Reports: Endometriosis, Polycystic Ovaries, , Other ( See Below) Other INSPECTOR POISING History: 2 miscarriages Musculoskeletal History: Reports: Other (See Below) Other Musculoskeletal History: 2 wrist surgeries Psychiatric History: Reports: Anxiety, Depression, Panic Attack Other Psychiatric History: Major depressive disorder, recurrent, Panic disorder with agoraphobia, ADHD predominantly inattentive type Endocrine/Metabolic History: Reports: None Hematologic History: Reports: Anemia, B12 Deficiency Other Hematologic History: Serpine1 4G/5G genotype, 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 Oncologic (Cancer) History: Reports: None Dermatologic History: Reports: Eczema - Infectious Disease History Infectious Disease History: Reports: Chicken Pox - Past Surgical History HEENT Surgical History: Reports: None Cardiovascular Surgical History: Reports: None GI Surgical History: Reports: Bariatric Procedure Female Surgical History: Reports: Endometrial Ablation Musculoskeletal Surgical History: Reports: Other (See Below) Other Musculoskeletal Surgeries/Procedures:: Left wrist, Bunion on both feet Social & Family History - Family History Family Medical History: Noncontributory - Caffeine Use Caffeine Use: Reports: Coffee, Soda ED ROS GENERAL - Review of Systems Review Of Systems: ROS reveals no pertinent complaints other than HPI. ED EXAM, GENERAL - Physical Exam Exam: See Below Exam Limited By: No Limitations General Appearance: Alert, WD/WN, No Apparent Distress Eye Exam: Bilateral Eye: PERRL Ears: Normal External Exam Nose: Normal Inspection Head: Atraumatic, Normocephalic Neck: Normal Inspection, Full Range of Motion Respiratory/Chest: No Respiratory Distress, Lungs Clear, Normal Breath Sounds Cardiovascular: Regular Rate, Rhythm Extremities: Normal Range of Motion Neurological: Alert, Oriented Psychiatric: Normal Affect, Normal Mood Skin Exam: Warm, Dry Course - Vital Signs Last Recorded V/S: Last Vital Signs Temp 36.3 C 04/11/19 20:02 Pulse 83 04/11/19 20:02 Resp 18 04/11/19 20:02 BP 115/84 04/11/19 20:02 Pulse Ox 100 04/11/19 20:02 - Orders/Labs/Meds Orders: Active Orders 24 hr Category Date Time Status Sodium Chloride 0.9% [Normal Saline] 1,000 ml Med 04/11/19 19:45 Active IV ASDIRECTED Medication Orders Sodium Chloride (Normal Saline) 1,000 mls @ 999 mls/hr IV ASDIRECTED SALLY Last Admin: 04/11/19 19:12 Dose: 999 mls/hr Meds: Medications Generic Name Dose Route Start Last Admin Trade Name Nabil PRN Reason Stop Dose Admin Sodium Chloride 1,000 mls @ 999 mls/hr 04/11/19 19:45 04/11/19 19:12 Normal Saline IV 999 mls/hr ASDIRECTED SALLY Administration Discontinued Medications Generic Name Dose Route Start Last Admin Trade Name Nabil PRN Reason Stop Dose Admin Hydromorphone HCl 1 mg 04/11/19 19:00 04/11/19 19:00 Dilaudid IVPUSH 04/11/19 19:01 1 mg ONETIME ONE Administration - Re-Assessments/Exams Free Text/Narrative Re-Assessment/Exam: 04/11/19 20:19 This patient presents with pelvic pain as detailed above. A broad differential diagnosis was considered including appendicitis, gall bladder disease, pancreatitis, diverticular disease, bowel obstruction, volvulus, intussusception , gastritis and peptic ulcer disease, gastro intestinal infection, inflammatory bowel disease, peritonitis, kidney stones, UTI, related complications , PID and ovarian cyst, mesenteric lymphadenopathy, IBS.Given her history, it is most likely this pain is related to her endometriosis. She did have some relief with the diluadid and fluids she was given. She was sent home with hydrocodone and will follow up with her PCP on Saturday. Departure - Departure Time of Disposition: 20:20 Disposition: Home, Self-Care 01 Condition: Fair Clinical Impression: Endometriosis - Discharge Information *PRESCRIPTION DRUG MONITORING PROGRAM REVIEWED*: No Instructions: Pelvic Pain, Female, [id number] Forms: ED Department Discharge - My Orders Last 24 Hours: My Active Orders 04/11/19 19:45 Sodium Chloride 0.9% [Normal Saline] 1,000 ml IV ASDIRECTED - Assessment/Plan Last 24 Hours: My Active Orders 04/11/19 19:45 Sodium Chloride 0.9% [Normal Saline] 1,000 ml IV ASDIRECTED
[2019-04-11] MEDS ORDERED: Sodium Chloride 0.9% 1,000 ML IV SCH (19:45)
[2019-04-11 20:04] VITALS: BP 115/84; PULSE 83
[2019-04-11] MEDS ORDERED: HYDROmorphone 2 MG/ML Syringe IVPUSH STA (20:18)
== END 2019-04-11 20:23 | disposition home or self-care (01) ==
LOC: LB.ED 18:47
DX: N80.9 Endometriosis, unspecified (principal); I10 Essential (primary) hypertension; F32.9 Major depressive disorder, single episode, unspecified; Z79.899 Other long term (current) drug therapy; Z79.82 Long term (current) use of aspirin; Z88.5 Allergy status to narcotic agent
CPT/HCPCS: 96361; 96374; 96376; 99283; A9270; J1170; J7030

== ENCOUNTER 2019-05-04 18:08 | Emergency (ER) | payer BC ==
[2019-05-04 18:31] VITALS: BP 105/68; PULSE 117
--- NOTE | 2019-05-04 18:38 | EDM.PDOC ---
ED HPI GENERAL MEDICAL PROBLEM - General Chief Complaint: General Stated Complaint: PAIN Time Seen by Provider: 05/04/19 18:24 Source of Information: Reports: Patient, RN History Limitations: Reports: No Limitations - History of Present Illness INITIAL COMMENTS - FREE TEXT/NARRATIVE: 33 yr female presents with abdominal pain, started this afternoon and took her hydrocodone without relief. States she does have surgery later this week for exploratory lap. Her pain is middle lower pelvic area. States BM this afternoon and that's when her pain started. States hx of endometriosis. Lower Abdomen Pain Score (Numeric/FACES): 8 - Related Data Allergies Allergy/AdvReac Type Severity Reaction Status Date / Time codeine Allergy Rash Verified 05/04/19 18:28 Home Meds: Home Meds Aspirin 81 mg PO DAILY 08/31/18 [History] Cyanocobalamin (Vitamin B-12) [Cyanocobalamin Injection] 1,000 mcg IM ASDIRECTED 08/31/18 [History] LORazepam 1 mg PO BID PRN 08/31/18 [History] Mirtazapine 30 mg PO QPM 08/31/18 [History] Zolpidem Tartrate [Zolpidem Tartrate ER] 12.5 mg PO QPM 08/31/18 [History] Ferrous Sulfate [Slow Fe] 142 mg PO TID 02/21/19 [History] PNV95/Ferrous Fumarate/FA [ Tablet] 1 each PO DAILY 02/21/19 [History] buPROPion HCl [Wellbutrin Xl] 300 mg PO DAILY 02/21/19 [History] oxyCODONE 5 mg PO Q4HR PRN 04/11/19 [History] Past Medical History HEENT History: Reports: Impaired Vision, Other (See Below) Other HEENT History: wears eye glasses Cardiovascular History: Reports: Other (See Below) Other Cardiovascular History: hypertension due to pre-eclampsia Respiratory History: Reports: None Other Respiratory History: history of pulmonary embolism while Gastrointestinal History: Reports: None Other Gastrointestinal History: gastric bypass Genitourinary History: Reports: None KING MAKER History: Reports: Endometriosis, Polycystic Ovaries, , Other ( See Below) Other KING MAKER History: 2 miscarriages Musculoskeletal History: Reports: Other (See Below) Other Musculoskeletal History: 2 wrist surgeries Psychiatric History: Reports: Anxiety, Depression, Panic Attack Other Psychiatric History: Major depressive disorder, recurrent, Panic disorder with agoraphobia, ADHD predominantly inattentive type Endocrine/Metabolic History: Reports: None Hematologic History: Reports: Anemia, B12 Deficiency Other Hematologic History: Serpine1 4G/5G genotype, 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 Oncologic (Cancer) History: Reports: None Dermatologic History: Reports: Eczema - Infectious Disease History Infectious Disease History: Reports: Chicken Pox - Past Surgical History HEENT Surgical History: Reports: None Cardiovascular Surgical History: Reports: None GI Surgical History: Reports: Bariatric Procedure Female Surgical History: Reports: Endometrial Ablation Musculoskeletal Surgical History: Reports: Other (See Below) Other Musculoskeletal Surgeries/Procedures:: Left wrist, Bunion on both feet Social & Family History - Family History Family Medical History: Noncontributory - Caffeine Use Caffeine Use: Reports: Coffee, Soda ED ROS GENERAL - Review of Systems Review Of Systems: See Below Constitutional: Reports: No Symptoms Respiratory: Reports: No Symptoms Cardiovascular: Reports: No Symptoms GI/Abdominal: Reports: Abdominal Pain, Other (BM today) : Reports: No Symptoms Musculoskeletal: Reports: No Symptoms Skin: Reports: No Symptoms Neurological: Reports: No Symptoms ED EXAM, GENERAL - Physical Exam Exam: See Below Exam Limited By: No Limitations General Appearance: Alert, No Apparent Distress Throat/Mouth: Normal Lips, Normal Voice, No Airway Compromise, Perioral Cyanosis Head: Atraumatic Respiratory/Chest: No Respiratory Distress, Lungs Clear, Normal Breath Sounds Cardiovascular: Regular Rate, Rhythm, No Murmur GI/Abdominal: Normal Bowel Sounds, Soft, No Distention, Tender (lower pelvic area, some tenderness to right lower quad of abdomen with deep palpation) Extremities: Normal Range of Motion, No Pedal Edema Neurological: Alert, Oriented, Normal Cognition, Normal Gait Psychiatric: Normal Affect, Normal Mood Lymphatic: No Adenopathy Course - Vital Signs Last Recorded V/S: Last Vital Signs Temp 97.5 F 05/04/19 18:21 Pulse 117 H 05/04/19 18:21 Resp 20 05/04/19 18:21 BP 105/68 05/04/19 18:21 Pulse Ox 100 05/04/19 18:21 - Orders/Labs/Meds Labs: Laboratory Tests 05/04/19 05/04/19 05/04/19 Range/Units 18:40 18:40 18:40 WBC 14.8 H (4.0-11.0) K/uL RBC 4.81 (3.80-5.80) M/uL Hgb 13.3 (11.5-16.5) g/dL Hct 40.8 (37.0-47.0) % MCV 85 (76-96) fL MCH 27.7 (27.0-32.0) pg MCHC 32.6 (31.0-35.0) g/dL RDW 19.3 H (11.0-16.0) % Plt Count 337 (150-500) K/uL MPV 8.9 (6.0-10.0) fL Neut % (Auto) 65.8 (45.0-70.0) % Lymph % (Auto) 23.1 (20.0-40.0) % [place] % (Auto) 9.9 (3.0-10.0) % Eos % (Auto) 0.9 L (1.0-5.0) % Baso % (Auto) 0.3 (0.0-0.5) % Neut # (Auto) 9.71 H (2.00-7.50) K/uL Lymph # (Auto) 3.41 (1.50-4.00) K/uL [place] # (Auto) 1.46 H (0.20-0.80) K/uL Eos # (Auto) 0.13 (0.04-0.40) K/uL Baso # (Auto) 0.04 (0.02-0.10) K/uL Sodium 141 (136-145) mmol/L Potassium 4.1 (3.5-5.1) mmol/L Chloride 104 (98-107) mmol/L Carbon Dioxide 25.6 (21.0-32.0) mmol/L Anion Gap 15.5 H (5.0-15.0) mmol/L BUN 10 D (8-26) mg/dL Creatinine 0.87 D (0.55-1.02) mg/dL Est Cr Clr Drug Dosing 79.42 mL/min Estimated GFR (MDRD) > 60 (>60) MLS/MIN BUN/Creatinine Ratio 11.5 (6-25) Glucose 107 H D (74-100) mg/dL Calcium 9.0 (8.5-10.1) mg/dL Urine Color Yellow Urine Appearance Clear (CLEAR) Urine pH 6.0 (5.0-8.0) Ur Specific [place] 1.020 (1.003-1.030) Urine Protein Negative (NEGATIVE) mg/dL Urine Glucose (UA) Negative (NEGATIVE) mg/dL Urine Ketones Negative (NEGATIVE) mg/dL Urine Occult Blood Trace-lysed H (NEGATIVE) Urine Nitrite Negative (NEGATIVE) Urine Bilirubin Negative (NEGATIVE) Urine Urobilinogen 0.2 (0.2-1.0) E.U./dL Ur Leukocyte Esterase Negative (NEGATIVE) Urine RBC 0-5 H /HPF Urine WBC 0-5 H /HPF Ur Squamous Epith Cells Few /HPF Urine Bacteria Few /HPF - Re-Assessments/Exams Free Text/Narrative Re-Assessment/Exam: 05/04/19 19:04 Labs reviewed, No UTI noted. BMP and CBC results reviewed No significant changes from past review of record. States Menses next week. States she did have a test with her Pre-op and no at this time. Rx for Percocet as needed every 6 hour for relief of pain. Her is with her and will drive pt home Departure - Departure Time of Disposition: 19:06 Disposition: Home, Self-Care 01 Condition: Good Clinical Impression: Pelvic pain - Discharge Information Instructions: Oxycodone tablets or capsules, Endometriosis Referrals: PCP,None [Primary Care Provider] - Forms: ED Department Discharge Additional Instructions: Discharge home. Percocet 1 tablet every 6 hours as needed for pain. Follow up with primary provider as needed in the clinic this week. - Assessment/Plan Plan: Pelvic pain, significant hx of endometriosis. She can't have any Advil or Aleve with the planned surgery later this week. She did try her hydrocodone at home and does have Zofran at home for nausea if needed. D/C tonight with Percocet 5/325 mg PO one tablet as needed q 6 hour. Notify provider, RTC or ER if symptoms persist or worsen, despite use of percocet. She will return to use of the hydrocodone, when the pain subsides.
[2019-05-04] MEDS ORDERED: Acetaminophen/oxyCODONE 325-5 MG Tab ONE (19:00)
== END 2019-05-04 19:05 | disposition home or self-care (01) ==
LOC: LB.ED 18:08
DX: R10.2 Pelvic and perineal pain (principal); F41.0 Panic disorder [episodic paroxysmal anxiety]; F32.9 Major depressive disorder, single episode, unspecified; D64.9 Anemia, unspecified; Z88.5 Allergy status to narcotic agent; Z79.82 Long term (current) use of aspirin; Z79.899 Other long term (current) drug therapy
CPT/HCPCS: 36415; 80048; 81001; 85025; 99284; A9270-GY

== ENCOUNTER 2019-06-27 16:37 | Emergency (ER) | payer BC ==
[2019-06-27] MEDS ORDERED: Acetaminophen/HYDROcodone 325-5 MG Tab ONE ×2 (17:00)
[2019-06-27] MEDS ORDERED: fentaNYL 250 MCG/5 ML SDV IVPUSH ONE ×2 (17:12→18:02)
[2019-06-27] MEDS ORDERED: Sodium Chloride 0.9% 1,000 ML IV ONE (17:13)
[2019-06-27] MEDS ORDERED: Sodium Chloride 0.9% 10 ML Syringe FLUSH PRN (17:13)
--- NOTE | 2019-06-27 17:19 | EDM.PDOC ---
ED HPI GENERAL MEDICAL PROBLEM - General Chief Complaint: General Stated Complaint: ENDOMETROSIS PAIN Time Seen by Provider: 06/27/19 17:00 Source of Information: Reports: Patient History Limitations: Reports: No Limitations - History of Present Illness INITIAL COMMENTS - FREE TEXT/NARRATIVE: This patient presents to the ED for evaluation and managment of pelvic pain. She has a long standing history of endometriosis and has had difficulty with pain for the past several months. She had a surgical ablation in 05/16 that "didn't work" and she is now scheduled for a hysterectomy in June,. She typically uses hydrocodone for pain and that works reasonably well. She saw Dr. Olvera yesterday for the same and he gave her oxycodone for "breakthrough" pain. She has tried it be states it does not work as well for her as the hydrocodone does. She has had some nausea with the pain but denies vomiting or diarrhea. Afebrile. Onset: Gradual Onset Date: 06/21/19 - Related Data Allergies Allergy/AdvReac Type Severity Reaction Status Date / Time codeine Allergy Rash Verified 06/27/19 16:58 Home Meds: Home Meds Aspirin 81 mg PO DAILY 08/31/18 [History] Cyanocobalamin (Vitamin B-12) [Cyanocobalamin Injection] 1,000 mcg IM ASDIRECTED 08/31/18 [History] LORazepam 1 mg PO BID PRN 08/31/18 [History] Mirtazapine 30 mg PO QPM 08/31/18 [History] Zolpidem Tartrate [Zolpidem Tartrate ER] 12.5 mg PO QPM 08/31/18 [History] Ferrous Sulfate [Slow Fe] 142 mg PO TID 02/21/19 [History] Pnv No.95/Ferrous Fum/Folic AC [ Tablet] 1 each PO DAILY 02/21/19 [ History] buPROPion HCl [Wellbutrin Xl] 300 mg PO DAILY 02/21/19 [History] oxyCODONE 5 mg PO Q4HR PRN 04/11/19 [History] Past Medical History HEENT History: Reports: Impaired Vision, Other (See Below) Other HEENT History: wears eye glasses Cardiovascular History: Reports: Other (See Below) Other Cardiovascular History: hypertension due to pre-eclampsia Respiratory History: Reports: None Other Respiratory History: history of pulmonary embolism while Gastrointestinal History: Reports: None Other Gastrointestinal History: gastric bypass Genitourinary History: Reports: None LITIGATION EXAMINER History: Reports: Endometriosis, Polycystic Ovaries, , Other ( See Below) Other LITIGATION EXAMINER History: 2 miscarriages Musculoskeletal History: Reports: Other (See Below) Other Musculoskeletal History: 2 wrist surgeries Psychiatric History: Reports: Anxiety, Depression, Panic Attack Other Psychiatric History: Major depressive disorder, recurrent, Panic disorder with agoraphobia, ADHD predominantly inattentive type Endocrine/Metabolic History: Reports: None Hematologic History: Reports: Anemia, B12 Deficiency Other Hematologic History: Serpine1 4G/5G genotype, 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 Oncologic (Cancer) History: Reports: None Dermatologic History: Reports: Eczema - Infectious Disease History Infectious Disease History: Reports: Chicken Pox - Past Surgical History HEENT Surgical History: Reports: None Cardiovascular Surgical History: Reports: None GI Surgical History: Reports: Bariatric Procedure Female Surgical History: Reports: Endometrial Ablation Musculoskeletal Surgical History: Reports: Other (See Below) Other Musculoskeletal Surgeries/Procedures:: Left wrist, Bunion on both feet Social & Family History - Family History Family Medical History: Noncontributory - Caffeine Use Caffeine Use: Reports: Coffee, Soda ED ROS GENERAL - Review of Systems Review Of Systems: See Below Constitutional: Reports: Decreased Appetite. Denies: Fever HEENT: Reports: No Symptoms Respiratory: Reports: No Symptoms Cardiovascular: Reports: No Symptoms GI/Abdominal: Reports: Decreased Appetite, Nausea. Denies: Abdominal Pain, Diarrhea, Vomiting : Reports: Pain Musculoskeletal: Reports: No Symptoms Skin: Reports: No Symptoms Neurological: Reports: No Symptoms ED EXAM, GENERAL - Physical Exam Exam: See Below Exam Limited By: No Limitations General Appearance: Alert, WD/WN, No Apparent Distress Eye Exam: Bilateral Eye: PERRL Nose: Normal Inspection, Normal Mucosa Throat/Mouth: Normal Inspection Head: Atraumatic, Normocephalic Neck: Normal Inspection, Full Range of Motion Respiratory/Chest: No Respiratory Distress, Lungs Clear, Normal Breath Sounds GI/Abdominal: Soft, Non-Tender, No Distention (Female) Exam: Uterine Tenderness, Other (tenderness with palpation bilateral pelvis) Course - Vital Signs Last Recorded V/S: Last Vital Signs Temp 36.4 C 06/27/19 16:54 Pulse 70 06/27/19 18:10 Resp 16 06/27/19 18:10 BP 113/75 06/27/19 18:10 Pulse Ox 97 06/27/19 18:10 - Orders/Labs/Meds Orders: Active Orders 24 hr Category Date Time Status Sodium Chloride 0.9% [Saline Flush] Med 06/27/19 17:13 Active 10 ml FLUSH ASDIRECTED PRN Saline Lock Insert [OM.PC] Stat Oth 06/27/19 17:13 Ordered Medication Orders Sodium Chloride (Saline Flush) 10 ml FLUSH ASDIRECTED PRN PRN Reason: Keep Vein Open Last Admin: 06/27/19 17:15 Dose: 10 ml Meds: Medications Generic Name Dose Route Start Last Admin Trade Name Freq PRN Reason Stop Dose Admin Sodium Chloride 10 ml 06/27/19 17:13 06/27/19 17:15 Saline Flush FLUSH 10 ml ASDIRECTED PRN Administration Keep Vein Open Discontinued Medications Generic Name Dose Route Start Last Admin Trade Name Freq PRN Reason Stop Dose Admin Fentanyl 50 mcg 06/27/19 17:12 06/27/19 17:24 Sublimaze IVPUSH 06/27/19 17:13 50 mcg ONETIME ONE Administration Fentanyl Confirm 06/27/19 17:31 06/27/19 17:29 Sublimaze Administered 06/27/19 17:32 Not Given Dose 100 mcg .ROUTE .STK-MED ONE Fentanyl 50 mcg 06/27/19 18:02 06/27/19 18:04 Sublimaze IVPUSH 06/27/19 18:03 50 mcg ONETIME ONE Administration Sodium Chloride 1,000 mls @ 1,000 mls/hr 06/27/19 17:13 06/27/19 17:20 Normal Saline IV 06/27/19 18:12 1,000 mls/hr .BOLUS ONE Administration - Re-Assessments/Exams Free Text/Narrative Re-Assessment/Exam: 06/27/19 18:24 This patient presents for assistance with pain management.She has a history of endometriosis and has been dealing with significant pain issues for quite some time. She is currently out of her hydrocodone which she states works better and states that the oxycodone she has been taking isn't helping much. In the ED she was given fluids and Fentanyl and had an excellent response to this. She feels that now that her pain is significantly reduced her hydrocodone will be sufficient. She was given hydrocodone at discharge. She will follow up with Dr. Olvera early next week. Departure - Departure Time of Disposition: 18:30 Disposition: DC/Tfer W/I Hosp To Swing 61 Condition: Good Clinical Impression: Pelvic pain - Discharge Information *PRESCRIPTION DRUG MONITORING PROGRAM REVIEWED*: No Instructions: Acetaminophen; Hydrocodone tablets or capsules, Endometriosis Referrals: PCP,None [Primary Care Provider] - Forms: ED Department Discharge Additional Instructions: - Take Hydrocodone 325-5 mg, 2 tablets every 6 hours when needed for abdominal pain. Take it with foods to avoid stomach upset. - My Orders Last 24 Hours: My Active Orders 06/27/19 17:13 Sodium Chloride 0.9% [Saline Flush] 10 ml FLUSH ASDIRECTED PRN Saline Lock Insert [OM.PC] Stat - Assessment/Plan Last 24 Hours: My Active Orders 06/27/19 17:13 Sodium Chloride 0.9% [Saline Flush] 10 ml FLUSH ASDIRECTED PRN Saline Lock Insert [OM.PC] Stat
[2019-06-27] MEDS ORDERED: fentaNYL 100 MCG/2 ML SDV ONE (17:31)
[2019-06-27 18:12] VITALS: BP 113/75; PULSE 70
== END 2019-06-27 18:35 | disposition home or self-care (01) ==
LOC: LB.ED 16:37
DX: R10.2 Pelvic and perineal pain (principal); F41.9 Anxiety disorder, unspecified; Z88.5 Allergy status to narcotic agent; Z79.82 Long term (current) use of aspirin; Z79.899 Other long term (current) drug therapy
CPT/HCPCS: 96361; 96374; 96376; 99284-25; A9270-GY; J3010; J7030

== ENCOUNTER 2019-07-05 15:51 | Emergency (ER) | payer BC ==
[2019-07-05] MEDS ORDERED: methylPREDNISolone Sodium Succinate 125 MG/2 ML SDV IM ONE (16:13)
[2019-07-05] MEDS ORDERED: HYDROmorphone 2 MG/ML Syringe SUBCUT ONE (16:14)
[2019-07-05] MEDS ORDERED: Acetaminophen/oxyCODONE 325-5 MG Tab ONE (16:15)
[2019-07-05] MEDS ORDERED: methylPREDNISolone Sodium Succinate 125 MG/2 ML SDV ONE (16:22)
[2019-07-05] MEDS ORDERED: HYDROmorphone 2 MG/ML SDV ONE (16:22)
[2019-07-05 16:36] VITALS: BP 156/99; PULSE 80
--- NOTE | 2019-07-05 17:13 | ER ---
HPI: A 33-year-old lady here with complaints of abdominal pain that is from endometriosis. She has well-documented history of this. She states that an exploratory surgery was done in April, and she is scheduled for hysterectomy on the 17 of July. The patient has been taking hydrocodone and Toradol. She states that she ran out of the hydrocodone and it was barely enough to keep her pain in a comfort level and her pain has steadily been increasing today. She currently rates her abdominal pain at 9/10. She tells me this is a typical bout of endometriosis for her, there is nothing new. She has not been running a fever. She has not had any recent falls or injuries. OBJECTIVE: GENERAL APPEARANCE: The patient is awake and alert. She is crying from the pain. VITAL SIGNS: Reviewed. She is afebrile. Blood pressure 156/99, respirations 16, pulse 80, O2 sats are 99%. LUNGS: Clear. PHYSICAL: There is no CVA tenderness with percussion. ABDOMEN: Very tender with even light touch involving the lower quadrants. SKIN: Warm and dry. DIAGNOSIS: Endometriosis flare up. TREATMENT PLAN: The patient was given Solu-Medrol 125 mg IM and Dilaudid 2 mg subcu. I monitored the patient for about 20 minutes and her pain was down to a 6 or 7. She is no longer crying and is starting to feel comfortable. At this point, she will be discharged to home. We will send some Percocet tablets with her, , she can take 1 or 2 tablets every 6 hours p.r.n. and continue taking the Toradol. She is to take her next dose of Percocet 5 to 6 hours after the Dilaudid. I want the patient to follow up with her primary care provider tomorrow regarding pain control. CRS/MODL /[id number]
== END 2019-07-05 16:50 | disposition home or self-care (01) ==
LOC: LB.ED 15:51
DX: N80.9 Endometriosis, unspecified (principal)
CPT/HCPCS: 96372; 99283-25; A9270-GY; J1170; J2930

== ENCOUNTER 2019-07-11 10:34 | Emergency (ER) | payer BC ==
[2019-07-11] MEDS ORDERED: Acetaminophen/HYDROcodone 325-5 MG Tab ONE ×2 (10:40)
[2019-07-11] MEDS ORDERED: Potassium Chloride 20 MEQ Tab.ER ONE ×2 (10:40→11:52)
[2019-07-11 10:51] VITALS: BP 154/99; PULSE 96
[2019-07-11] MEDS ORDERED: HYDROmorphone 2 MG/ML Syringe SUBCUT PRN (11:34)
[2019-07-11] MEDS ORDERED: HYDROmorphone 2 MG/ML SDV ONE (11:39)
--- NOTE | 2019-07-11 14:01 | ER ---
REASON FOR EMERGENCY ROOM VISIT: Pelvic pain. HISTORY: This 33-year-old woman is well known for her multiple visits here regarding pain usually related to endometriosis. She has had numerous visits both here into the clinic for the same problem and she and her have struggled with this over the past couple of years particularly. She is known to have endometriosis as well as polycystic ovary syndrome, but is complicated her situation is that they have been trying to get . She does have one successful in the past. She has had ablation last April and that was not helpful in alleviating her symptoms. For the past 24 hours, she had a flare-up of her usual pelvic pain manifested by a waxing and waning cramping-type lower abdominal discomfort that is often associated with nausea and vomiting. She does have Zofran at home, but she states that frequently after meals she experiences vomiting. She is scheduled to have a hysterectomy next week on Saturday, but her pain since approximately 1 o'clock this morning has been much more severe than normal. She has practically lived on opiates all year long off and on. She has taken Toradol orally 10, which has not been helpful at all. She has taken oxycodone, hydrocodone, and both have been useful, but she has been taking increasing amounts to achieve the same results, probably because of tolerance. She has not had any fever, diarrhea or dysuria. Her pain is same exact pain that she has had every time she has had to come into the ER or to the office to be seen. PAST MEDICAL HISTORY: 1. Multiple previous laparoscopic operations for ablation and cautery. 2. History of nerve ablation for pelvic pain. 3. D and C x2. 4. 1, para 1. 5. Uterine rupture following delivery. MEDICATION: Reviewed. Please see electronic medical record. ALLERGIES: NONE TO MEDICATIONS. REVIEW OF SYSTEMS: Pertinent positives and negatives as listed in the HPI. PHYSICAL EXAMINATION: GENERAL: She is sitting up, leaning forward at this time. She is in no acute distress. VITAL SIGNS: She is afebrile. Pulse rate 96, blood pressure 154/99, respiratory rate is 20, O2 sats 100. HEENT: No scleral icterus. No conjunctivitis. Oropharynx is normal. NECK: Supple. No adenopathy. CHEST: Clear to auscultation. CARDIAC: Regular rate without murmur. ABDOMEN: Actually soft with minimal tenderness to deep palpation. No guarding or rebound. No CVA tenderness is noted. LABORATORY DATA: Her CBC is normal. She has no leukocytosis. Her CMP is significant for hypokalemia of 2.9. Her liver enzymes are normal. Her renal function is normal. Her urinalysis is normal. IMPRESSION: 1. Recurrent pelvic pain secondary to endometriosis. 2. Hypokalemia. 3. Longstanding opiate use for pain. PLAN: Thankfully, she is having hysterectomy on Saturday and hopefully this should eliminate her need for continued opiates to address her pain issues going forward. I openly expressed her my concern that regarding the chronicity of her opiate use, even though it is not something that she has sought out for any reasons other than pain control. Her hypokalemia has been something that has been problematic in the past even to the point where she has required hospitalization. I reviewed with her medications or certain foods that she can take to prevent this. I did give her K-Harper extended release 20 mEq, dispensed #6, 1 p.o. b.i.d. until she can be seen by Dr. Olvera and have her potassium rechecked next week prior to her surgery. She will also have to be seen by Dr. Olvera regarding ongoing pain medications to get her through the rest of the week. She was given hydrocodone 5 mg tablets, dispensed #20, 1 to 2 every 6 hours p.r.n. pain. All questions were answered. She understands and agrees with this plan. DAMIEN /[id number]
== END 2019-07-11 12:10 | disposition home or self-care (01) ==
LOC: LB.ED 10:34
DX: N80.9 Endometriosis, unspecified (principal); E87.6 Hypokalemia; Z79.891 Long term (current) use of opiate analgesic
CPT/HCPCS: 36415; 80053; 81001; 85025; 99284; A9270-GY; J1170

== ENCOUNTER 2019-07-13 06:58 | Emergency (ER) | payer BC ==
[2019-07-13] MEDS: Ketorolac 60 MG/2 ML SDV IM ONE (07:25)
[2019-07-13] MEDS ORDERED: Ketorolac 60 MG/2 ML SDV ONE (07:28)
[2019-07-13 07:35] VITALS: BP 128/95; PULSE 103
--- NOTE | 2019-07-13 10:37 | ER ---
REASON FOR EMERGENCY ROOM VISIT: Recurrent pelvic pain and endometriosis. HISTORY: Dulce returns less than 2 days after being seen for pelvic pain that has been chronic in nature and due to endometriosis. For details concerning the history of that, please see my note from 07/11. She has had countless visits both to the emergency room and to the provider's office for pelvic pain due to that has been attributed to her endometriosis. She has required a great deal of opiates and we had a long discussion 2 days ago regarding the hazards of increasing opiate requirements for pain management. Those details are documented in the previous note. At the time she was seen, she was also found to be hypokalemic and was given some potassium replacement and it was thought that the vomiting was contributing to her hypokalemia. She has not had any vomiting with the recurrence of her pain. She was given hydrocodone 5 mg tablets, did dispense #20, and she went through all of these in less than 2 days time. She states that she reached a point where she is taking 4 hydrocodone tablets at a time to control her pain. She states that she does try to space them out, but she has to take a large dose of hydrocodone in order to achieve the same effect that she was able to get with much less of this medication earlier this year. She has not had any fever. Denies any dysuria. PAST MEDICAL HISTORY: Reviewed. See EMR. MEDICATIONS: Reviewed. See EMR. REVIEW OF SYSTEMS: Pertinent positives and negatives as listed in the HPI. PHYSICAL EXAMINATION: GENERAL: She is sitting up at this time, alert and cooperative, does not appear to be in any acute distress. VITAL SIGNS: She is afebrile. Heart rate is 103, blood pressure is 128/95, respirations 16, O2 sats 99%. CHEST: Clear to auscultation. CARDIAC: Regular rate without murmur. ABDOMEN: Soft and nondistended. There is no guarding or rebound. There is no tenderness to superficial or deep palpation at this time. There is no CVA tenderness. IMPRESSION: Chronic pelvic pain due to endometriosis. PLAN: She did receive one Toradol injection of 60 mg IM and it did not help with her pain. She states that she gets her best pain relief now with Dilaudid, but hydrocodone also helps. I have once again discussed with her my concerns regarding her increasing needs for hydrocodone and how this tolerance is making it such that she requires more of the medication for the same results. She understands all of this, and I am quite confident. I think at this juncture this fortuitous is that she is scheduled to have hysterectomy on Saturday and this should eliminate the source of her pain. However, going forward, I think that if she continues to have pain management issues that extend beyond the postoperative period, it would probably be a good idea to get her pain management centralized to one provider and even the possibility of a pain contract was discussed. She understands all this. We decided to have her see Dr. Olvera this morning in the office and she will get her serum potassium checked at the same time. I did discuss this with Dr. Olvera in person and expressed my concerns about the pain management, and he has agreed with me. DAMIEN /[id number]
== END 2019-07-13 08:00 | disposition home or self-care (01) ==
LOC: LB.ED 06:58
DX: N80.9 Endometriosis, unspecified (principal)
CPT/HCPCS: 96372; 99283-25; J1885

== ENCOUNTER 2019-08-08 14:49 | Emergency (ER) | payer BC ==
[2019-08-08] MEDS ORDERED: Sodium Chloride 0.9% 10 ML Syringe FLUSH PRN (14:52)
[2019-08-08] MEDS: Ondansetron 4 MG/2 ML SDV IVPUSH ONE (15:39)
[2019-08-08] MEDS: Sodium Chloride 0.9% 1,000 ML IV ONE (15:40)
[2019-08-08] MEDS: Prochlorperazine 10 MG/2 ML SDV IVPUSH ONE ×2 (16:40→19:29)
[2019-08-08] MEDS: Prochlorperazine 10 MG/2 ML SDV ONE (16:43)
[2019-08-08 17:58] VITALS: BP 100/69
[2019-08-08 18:16] VITALS: PULSE 111
[2019-08-08] MEDS: WATER IV SCH ×2 (18:52)
[2019-08-08] MEDS: DEXTROSE 5% IV SCH ×2 (18:52)
[2019-08-08] MEDS: POTASSIUM CHLORIDE IV SCH ×2 (18:52)
[2019-08-08] MEDS ORDERED: Prochlorperazine 10 MG/2 ML SDV ONE (19:33)
--- NOTE | 2019-08-08 21:53 | ER ---
REASON FOR ADMISSION: Nausea, vomiting, and diarrhea. HISTORY OF PRESENT ILLNESS: This 33-year-old woman recently underwent a laparoscopic assisted vaginal hysterectomy for pelvic endometriosis that took place on 07/17. Her postoperative recovery was uneventful, and she only received prophylactic antibiotics prior to her operation at that time. Yesterday, she developed nausea followed shortly thereafter by vomiting, and that was followed with diarrhea that has been persistent throughout the night and the morning today. She reached a point where she was unable to unable to keep anything down. She had no blood in her emesis or in her stools. She has not had any fever or chills. She denies any respiratory symptoms. She thinks since last evening she had diarrhea which was watery at least 10 times. She did not have any fever. She denies any actual abdominal pain. She has not had any urinary symptoms and no dysuria. She has been voiding normally and last time she voided was approximately an hour before her arrival here in the emergency department. PAST MEDICAL HISTORY: Significant for: 1. Endometriosis. 2. Episodes of pelvic pain. 3. History of agoraphobia and anxiety. 4. History of gastric bypass. 5. History of polycystic ovary syndrome. MEDICATIONS: Reviewed. Please see her electronic medical record. ALLERGIES: TO CODEINE. REVIEW OF SYSTEMS: Pertinent positives and negatives as listed in the HPI. PHYSICAL EXAMINATION: GENERAL: She is cooperative and in no acute distress. VITAL SIGNS: She is afebrile. Blood pressure 125/85, pulse of 128, respirations 18, O2 sats 99% on room air. HEENT: No scleral icterus is noted. Normal oral exam. Normal-appearing mucosa and hydration. NECK: No adenopathy, supple. CHEST: Clear to auscultate with good air exchange and no wheezes, rhonchi, or rales. CARDIAC: Regular rate without murmur. ABDOMEN: Nondistended. There are bowel sounds present. It is soft and nontender. No rebound or guarding. It is noted, no hepatosplenomegaly or pelvic masses could be felt. EXTREMITIES: Normal pulses. No edema. Good perfusion. No cyanosis is noted. LABORATORY DATA: Her CBC showed that she had leukocytosis with a white count of 15.1. Her hemoglobin is normal at 14.6. Her CMP shows that she has a mild hypokalemia of 3.3. Her glucose is 142. She has no elevated liver enzymes. Stool for C. difficile toxin was negative. FURTHER EMERGENCY ROOM COURSE: An IV was inserted, and she was given 1 L of normal saline over 1 hour. She did receive Zofran 4 mg IV x1, and it did not seem to help. She continued to have nausea, and she had at least 2 loose stools while in the emergency room. We went ahead and gave her 10 mg of Compazine IV which was repeated prior to her discharge. This seemed to take care of her nausea, and she felt much better, particularly after she was hydrated. Altogether, she was in the emergency department for approximately 5 hours, and her symptoms did settle down quite nicely. IMPRESSION: Gastroenteritis (stool culture for pathogens pending at this time). PLAN: She was instructed to only stay on clear liquids and go easy this evening and resist temptation to eat solids at least until tomorrow morning and if she feels better, she can slowly gradually advance her diet. If she has any additional problems or any questions, she should either give us a call or return for another evaluation. She understands and agrees to this plan. All questions were answered. DAMIEN /[id number]
== END 2019-08-08 19:55 | disposition home or self-care (01) ==
LOC: LB.ED 14:49
DX: K52.9 Noninfective gastroenteritis and colitis, unspecified (principal); Z98.84 Bariatric surgery status
CPT/HCPCS: 36415; 80053; 85025; 87045; 87046; 87427; 87493; 96361; 96365; 96366; 96375; 99284-25; J0780; J2405; J3480; J7030; J7060

== ENCOUNTER 2020-06-18 10:55 | Emergency (ER) | payer BC ==
[2020-06-18] MEDS ORDERED: Acetaminophen/HYDROcodone 325-5 MG Tab ONE (12:00)
[2020-06-18 12:58] VITALS: BP 113/94; PULSE 113
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
== END 2020-06-18 12:25 | disposition home or self-care (01) ==
LOC: LB.ED 10:55
DX: R07.82 Intercostal pain (principal); R07.81 Pleurodynia; F41.9 Anxiety disorder, unspecified; F32.9 Major depressive disorder, single episode, unspecified; Z88.5 Allergy status to narcotic agent; Z79.899 Other long term (current) drug therapy; Z79.82 Long term (current) use of aspirin
CPT/HCPCS: 99283; A9270

== ENCOUNTER 2020-09-19 07:13 | Emergency (ER) | payer BC ==
[2020-09-19] MEDS ORDERED: Sodium Chloride 0.9% 1,000 ML IV ONE (09:04)
--- NOTE | 2020-09-19 09:13 | EDM.PDOC ---
ED HPI GENERAL MEDICAL PROBLEM - General Chief Complaint: General Stated Complaint: DIZZINESS / CONFUSION Time Seen by Provider: 09/19/20 08:30 Source of Information: Reports: Patient History Limitations: Reports: No Limitations - History of Present Illness INITIAL COMMENTS - FREE TEXT/NARRATIVE: patient was brought to the ER by her due to '' excessive sleeping ''. Per patient and , she has been sleeping most of the times that last 48 hrs and talking slowly and feeling drowsy every time she tried to walk around. h/o mental health conditions including bipolar, anxiety and sleeping problems. no CP or SOB. no nausea or emesis. Patient is on Ativan and Seroquel. Her Seroquel dose was INCREASED from 300 to 400mg once day prior to the onset of her symptoms. She reports that after taking 400mg Seroquel on Saturday, she slept from 7a Saturday till 8a Saturday. No weakness or numbness, but feels like her body is heavy and just wants to sleep. Reports that her anxiety is under control. This is the first time this happen to her, and the current Seroquel is the highest for her ever. Denies consuming alcohol or illicit drugs lately. Onset: Today Duration: Day(s): (2) - Related Data Allergies Allergy/AdvReac Type Severity Reaction Status Date / Time codeine Allergy Rash Verified 09/19/20 07:26 Home Meds: Home Meds Aspirin 81 mg PO DAILY 08/31/18 [History] Cyanocobalamin (Vitamin B-12) [Cyanocobalamin Injection] 1,000 mcg IM ASDIRECTED 08/31/18 [History] LORazepam 2.5 mg PO ASDIRECTED PRN 08/31/18 [History] Zolpidem Tartrate [Zolpidem Tartrate ER] 12.5 mg PO QPM 08/31/18 [History] Pnv No.95/Ferrous Fum/Folic AC [ Tablet] 1 each PO DAILY 02/21/19 [History] Linaclotide [Linzess] 145 mg PO ASDIRECTED PRN 09/19/20 [History] QUEtiapine [SEROquel] 500 mg PO DAILY 09/19/20 [History] Past Medical History HEENT History: Reports: Impaired Vision, Other (See Below) Other HEENT History: wears eye glasses Cardiovascular History: Reports: Other (See Below) Other Cardiovascular History: hypertension due to pre-eclampsia Respiratory History: Reports: PE Other Respiratory History: history of pulmonary embolism while Gastrointestinal History: Reports: None Other Gastrointestinal History: gastric bypass 2006 Genitourinary History: Reports: None NEWS ANALYST History: Reports: Endometriosis, Polycystic Ovaries, , Other (See Below) Other NEWS ANALYST History: 2 miscarriages, adenomyosis, complete hysterectomy 07/17/2019 Musculoskeletal History: Reports: Other (See Below) Other Musculoskeletal History: 2 wrist surgeries Neurological History: Reports: None Psychiatric History: Reports: Anxiety, Depression, Panic Attack Other Psychiatric History: Major depressive disorder, recurrent, Panic disorder with agoraphobia, ADHD predominantly inattentive type Endocrine/Metabolic History: Reports: None Hematologic History: Reports: Anemia, B12 Deficiency Other Hematologic History: Serpine1 4G/5G genotype, 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 Oncologic (Cancer) History: Reports: None Dermatologic History: Reports: Eczema - Infectious Disease History Infectious Disease History: Reports: None - Past Surgical History HEENT Surgical History: Reports: None Cardiovascular Surgical History: Reports: None Respiratory Surgical History: Reports: None GI Surgical History: Reports: Bariatric Procedure Other GI Surgeries/Procedures: malabsorption of iron, Female Surgical History: Reports: Endometrial Ablation Other Female Surgeries/Procedures: Laparoscopic procedure for endometriosis Musculoskeletal Surgical History: Reports: Other (See Below) Other Musculoskeletal Surgeries/Procedures:: Left wrist, Bunion on both feet Social & Family History - Family History Family Medical History: No Pertinent Family History - Tobacco Use Years of Tobacco use: 15 Packs/Tins Daily: 0.5 - Caffeine Use Caffeine Use: Reports: Coffee, Soda - Recreational Drug Use Recreational Drug Use: No ED ROS GENERAL - Review of Systems Review Of Systems: See Below Constitutional: Reports: Malaise, Fatigue HEENT: Reports: No Symptoms Respiratory: Reports: No Symptoms Cardiovascular: Reports: No Symptoms GI/Abdominal: Reports: No Symptoms Musculoskeletal: Reports: No Symptoms Psychiatric: Denies: Agitation, Anxiety, Suicidal Ideation ED EXAM, GENERAL - Physical Exam Exam: See Below Exam Limited By: No Limitations General Appearance: Alert, No Apparent Distress. No: Anxious Eye Exam: Bilateral Eye: EOMI, PERRL Neck: Normal Inspection, Supple Respiratory/Chest: No Respiratory Distress, Lungs Clear, Normal Breath Sounds Cardiovascular: Normal Peripheral Pulses, Regular Rate, Rhythm, No Edema Back Exam: Normal Inspection Extremities: Normal Inspection Neurological: Alert, Oriented, Normal Cognition, No Motor/Sensory Deficits Psychiatric: Normal Affect, Normal Mood Course - Vital Signs Last Recorded V/S: Last Vital Signs Temp 36.1 C 09/19/20 08:22 Pulse 92 09/19/20 10:05 Resp 19 09/19/20 10:05 BP 123/83 09/19/20 10:05 Pulse Ox 99 09/19/20 10:05 - Orders/Labs/Meds Labs: Laboratory Tests 09/19/20 09/19/20 09/19/20 Range/Units 07:40 07:40 07:40 WBC 11.6 H (4.0-11.0) K/uL RBC 4.49 (3.80-5.80) M/uL Hgb 13.1 (11.5-16.5) g/dL Hct 40.4 (37.0-47.0) % MCV 90 (76-96) fL MCH 29.2 (27.0-32.0) pg MCHC 32.4 (31.0-35.0) g/dL RDW 13.4 (11.0-16.0) % Plt Count 288 (150-500) K/uL MPV 9.0 (6.0-10.0) fL Neut % (Auto) 70.8 H (45.0-70.0) % Lymph % (Auto) 18.8 L (20.0-40.0) % [place] % (Auto) 9.1 (3.0-10.0) % Eos % (Auto) 1.1 (1.0-5.0) % Baso % (Auto) 0.2 (0.0-0.5) % Neut # (Auto) 8.21 H (2.00-7.50) K/uL Lymph # (Auto) 2.18 (1.50-4.00) K/uL [place] # (Auto) 1.05 H (0.20-0.80) K/uL Eos # (Auto) 0.13 (0.04-0.40) K/uL Baso # (Auto) 0.02 (0.02-0.10) K/uL Sodium 143 (136-145) mmol/L Potassium 3.7 (3.5-5.1) mmol/L Chloride 104 (98-107) mmol/L Carbon Dioxide 26.0 (21.0-32.0) mmol/L Anion Gap 16.7 H (5.0-15.0) mmol/L BUN 8 (8-26) mg/dL Creatinine 0.92 (0.55-1.02) mg/dL Est Cr Clr Drug Dosing 74.40 mL/min Estimated GFR (MDRD) > 60 (>60) MLS/MIN BUN/Creatinine Ratio 8.7 (6-25) Glucose 101 H (74-100) mg/dL Calcium 8.6 (8.5-10.1) mg/dL Phosphorus (2.5-4.9) mg/dL Magnesium (1.8-2.4) mg/dL Total Bilirubin 0.5 D (0.0-1.0) mg/dL AST 12 L (15-37) U/L ALT 16 (12-78) U/L Alkaline Phosphatase 89 (46-116) U/L Total Protein 6.8 (6.4-8.2) g/dL Albumin 3.4 (3.4-5.0) g/dL Globulin 3.4 (2.2-4.2) g/dL Albumin/Globulin Ratio 1.0 (0.8-2.0) Urine Color Yellow Urine Appearance Clear (CLEAR) Urine pH 7.0 (5.0-8.0) Ur Specific [place] 1.025 (1.003-1.030) Urine Protein Negative (NEGATIVE) mg/dL Urine Glucose (UA) Negative (NEGATIVE) mg/dL Urine Ketones Negative (NEGATIVE) mg/dL Urine Occult Blood Negative (NEGATIVE) Urine Nitrite Negative (NEGATIVE) Urine Bilirubin Negative (NEGATIVE) Urine Urobilinogen 1.0 (0.2-1.0) E.U./dL Ur Leukocyte Esterase Negative (NEGATIVE) Urine Opiates Screen (NEGATIVE) Ur Oxycodone Screen (NEGATIVE) Urine Methadone Screen (NEGATIVE) Ur Barbiturates Screen (NEGATIVE) Ur Tricyclics Screen (NEGATIVE) Ur Phencyclidine Scrn (NEGATIVE) Ur Amphetamine Screen (NEGATIVE) U Methamphetamines Scrn (NEGATIVE) Urine MDMA Screen (NEGATIVE) U Benzodiazepines Scrn (NEGATIVE) U Cocaine Metab Screen (NEGATIVE) U Marijuana (THC) Screen (NEGATIVE) 09/19/20 09/19/20 Range/Units 07:40 08:39 WBC (4.0-11.0) K/uL RBC (3.80-5.80) M/uL Hgb (11.5-16.5) g/dL Hct (37.0-47.0) % MCV (76-96) fL MCH (27.0-32.0) pg MCHC (31.0-35.0) g/dL RDW (11.0-16.0) % Plt Count (150-500) K/uL MPV (6.0-10.0) fL Neut % (Auto) (45.0-70.0) % Lymph % (Auto) (20.0-40.0) % [place] % (Auto) (3.0-10.0) % Eos % (Auto) (1.0-5.0) % Baso % (Auto) (0.0-0.5) % Neut # (Auto) (2.00-7.50) K/uL Lymph # (Auto) (1.50-4.00) K/uL [place] # (Auto) (0.20-0.80) K/uL Eos # (Auto) (0.04-0.40) K/uL Baso # (Auto) (0.02-0.10) K/uL Sodium (136-145) mmol/L Potassium (3.5-5.1) mmol/L Chloride (98-107) mmol/L Carbon Dioxide (21.0-32.0) mmol/L Anion Gap (5.0-15.0) mmol/L BUN (8-26) mg/dL Creatinine (0.55-1.02) mg/dL Est Cr Clr Drug Dosing mL/min Estimated GFR (MDRD) (>60) MLS/MIN BUN/Creatinine Ratio (6-25) Glucose (74-100) mg/dL Calcium (8.5-10.1) mg/dL Phosphorus 4.2 (2.5-4.9) mg/dL Magnesium 1.9 (1.8-2.4) mg/dL Total Bilirubin (0.0-1.0) mg/dL AST (15-37) U/L ALT (12-78) U/L Alkaline Phosphatase (46-116) U/L Total Protein (6.4-8.2) g/dL Albumin (3.4-5.0) g/dL Globulin (2.2-4.2) g/dL Albumin/Globulin Ratio (0.8-2.0) Urine Color Urine Appearance (CLEAR) Urine pH (5.0-8.0) Ur Specific [place] (1.003-1.030) Urine Protein (NEGATIVE) mg/dL Urine Glucose (UA) (NEGATIVE) mg/dL Urine Ketones (NEGATIVE) mg/dL Urine Occult Blood (NEGATIVE) Urine Nitrite (NEGATIVE) Urine Bilirubin (NEGATIVE) Urine Urobilinogen (0.2-1.0) E.U./dL Ur Leukocyte Esterase (NEGATIVE) Urine Opiates Screen Negative (NEGATIVE) Ur Oxycodone Screen Negative (NEGATIVE) Urine Methadone Screen Negative (NEGATIVE) Ur Barbiturates Screen Negative (NEGATIVE) Ur Tricyclics Screen Positive H (NEGATIVE) Ur Phencyclidine Scrn Negative (NEGATIVE) Ur Amphetamine Screen Negative (NEGATIVE) U Methamphetamines Scrn Negative (NEGATIVE) Urine MDMA Screen Negative (NEGATIVE) U Benzodiazepines Scrn Positive H (NEGATIVE) U Cocaine Metab Screen Negative (NEGATIVE) U Marijuana (THC) Screen Negative (NEGATIVE) Meds: Medications Discontinued Medications Generic Name Dose Route Start Last Admin Trade Name Freq PRN Reason Stop Dose Admin Sodium Chloride 1,000 mls @ 999 mls/hr 09/19/20 09:04 09/19/20 09:06 Normal Saline IV 09/19/20 10:04 999 mls/hr .BOLUS ONE Administration - Re-Assessments/Exams Free Text/Narrative Re-Assessment/Exam: upon arrival, patient was connected to a monitor. labs were ordered - including CBC, BMP, Mg and Po4 - all WNL Urine tox +ve for SSRI and benzo as expected. no e/o neuro deficits on exam. IVF was given. Patient was monitored in the ER for few hours - reports feeling better. ambulating without problems, still feels sleepy. She admits that she combined Ambien 12mg PO with Seroquel 400mg - and this probably why she has been feeling like this. She admitted that her PCP discussed with he going down on Ambien dose when they increased her Seroquel but she decided to continue with the high dose of Ambien. Departure - Departure Time of Disposition: 10:29 Disposition: Home, Self-Care 01 Condition: Good Clinical Impression: Polypharmacy, Drug side effects, Feeling tired - Discharge Information *PRESCRIPTION DRUG MONITORING PROGRAM REVIEWED*: Not Applicable *COPY OF PRESCRIPTION DRUG MONITORING REPORT IN PATIENT TITI: Not Applicable Referrals: PCP,None [Primary Care Provider] - Forms: ED Department Discharge Additional Instructions: - stop taking Ambien today - discuss with your PCP decreasing the dose - Recommend to stop using Seroquel today and decrease dose to 300mg ( down from 400mg ). - follow up with your therapist in 3-7 days as needed - return to the ER if any concerns - no driving cars or operating heavy machines - Recommend to take today and tomorrow days off Sepsis Event Note (ED) - Evaluation Sepsis Screening Result: No Definite Risk - Focused Exam Vital Signs: Vital Signs Temp Pulse Resp BP Pulse Ox 09/19/20 10:05 92 19 123/83 99 09/19/20 09:32 90 18 116/81 99 09/19/20 09:17 99 17 117/77 96 09/19/20 09:13 92 17 113/77 98 09/19/20 08:46 96 17 109/74 99 09/19/20 08:40 101 H 115/77 09/19/20 08:22 36.1 C 99 18 107/75 98 09/19/20 08:10 36.4 C 102 H 18 113/78 99 09/19/20 07:27 36.1 C 116 H 18 118/83 99 - Problem List & Annotations (1) Drug side effects SNOMED Code(s): 218368048 Code(s): T88.7XXA - UNSP ADVERSE EFFECT OF DRUG OR MEDICAMENT, INIT ENCNTR Status: Acute Priority: Medium Current Visit: Yes (2) Feeling tired SNOMED Code(s): 785128557 Code(s): R53.83 - OTHER FATIGUE Status: Acute Priority: Medium Current Visit: Yes (3) Polypharmacy SNOMED Code(s): 655429844 Code(s): Z79.899 - OTHER DETENTION (CURRENT) DRUG THERAPY Status: Acute Priority: Medium Current Visit: Yes - Problem List Review Problem List Initiated/Reviewed/Updated: No - Assessment/Plan Plan: - stop taking Ambien today - discuss with your PCP decreasing the dose - Recommend to stop using Seroquel today and decrease dose to 300mg ( down from 400mg ). - follow up with your therapist in 3-7 days as needed - return to the ER if any concerns - no driving cars or operating heavy machines - Recommend to take today and tomorrow days off
[2020-09-19 10:06] VITALS: BP 123/83; PULSE 92
== END 2020-09-19 10:49 | disposition home or self-care (01) ==
LOC: LB.ED 07:13
DX: G47.10 Hypersomnia, unspecified (principal); R53.83 Other fatigue; T43.595A Adverse effect of other antipsychotics and neuroleptics, initial encounter; I10 Essential (primary) hypertension; Z79.82 Long term (current) use of aspirin; Z72.0 Tobacco use
CPT/HCPCS: 36415; 80053; 80307; 81003; 83735; 84100; 85025; 99283; J7030

== ENCOUNTER 2021-07-10 07:00 | Emergency (ER) | payer BC ==
[2021-07-10 07:15] VITALS: BP 112/81; PULSE 119
[2021-07-10] MEDS: Ketorolac 60 MG/2 ML SDV IM ONE (07:26)
[2021-07-10] MEDS: Ketorolac 30 MG/ML SDV ONE (07:29)
--- NOTE | 2021-07-10 08:41 | EDM.PDOC ---
<Tho Reyna S - Last Filed: 07/10/21 09:56> ED HPI GENERAL MEDICAL PROBLEM - General Chief Complaint: ENT Problem Stated Complaint: toothache Time Seen by Provider: 07/10/21 07:00 Source of Information: Reports: Patient History Limitations: Reports: No Limitations - History of Present Illness INITIAL COMMENTS - FREE TEXT/NARRATIVE: 35-year-old female presents the ED complaining of left jaw pain secondary to dental procedure that she had done on July 06. Patient had a gradual onset but described as throbbing and sharp of the left lower jaw after she had 8 teeth extracted and a dental appliance placed/denture. Patient rates the pain as a 7/10 on the pain scale. It radiates to her left ear. Positive for: Funny taste in the mouth, 1 g acetaminophen every 4 hours exceeding 4 g limit. Negative for: Chest pain, shortness of breath, dizziness lightheaded, syncope/near syncope, nausea/vomiting, constipation/diarrhea, difficulty swallowing, difficulty breathing. No other complaints at this time Treatments WELL TENDER: Reports: Acetaminophen, NSAIDS Left Jaw Pain Score (Numeric/FACES): 6 - Related Data Allergies Allergy/AdvReac Type Severity Reaction Status Date / Time codeine Allergy Rash Verified 07/10/21 07:11 Home Meds: Home Meds Cyanocobalamin (Vitamin B-12) [Cyanocobalamin Injection] 1,000 mcg IM ASDIRECTED 08/31/18 [History] Zolpidem Tartrate [Zolpidem Tartrate ER] 12.5 mg PO QPM 08/31/18 [History] Linaclotide [Linzess] 145 mg PO ASDIRECTED PRN 09/19/20 [History] QUEtiapine [SEROquel] 500 mg PO DAILY 09/19/20 [History] Penicillin V Potassium 500 mg PO Q6HR 10 Days #40 tab 07/10/21 [Rx] buPROPion [Wellbutrin] 200 mg PO DAILY 07/10/21 [History] clonazePAM [Clonazepam] 0.5 mg PO BID PRN 07/10/21 [History] Past Medical History HEENT History: Reports: Impaired Vision, Other (See Below) Other HEENT History: wears eye glasses Cardiovascular History: Reports: Other (See Below) Other Cardiovascular History: hypertension due to pre-eclampsia Respiratory History: Reports: PE Other Respiratory History: history of pulmonary embolism while Gastrointestinal History: Reports: None Other Gastrointestinal History: gastric bypass 2006 Genitourinary History: Reports: None CRYSTAL GRINDER History: Reports: Endometriosis, Polycystic Ovaries, , Other (See Below) Other CRYSTAL GRINDER History: 2 miscarriages, adenomyosis, complete hysterectomy 07/17/2019 Musculoskeletal History: Reports: Other (See Below) Other Musculoskeletal History: 2 wrist surgeries Neurological History: Reports: None Psychiatric History: Reports: Anxiety, Depression, Panic Attack Other Psychiatric History: Major depressive disorder, recurrent, Panic disorder with agoraphobia, ADHD predominantly inattentive type Endocrine/Metabolic History: Reports: None Hematologic History: Reports: Anemia, B12 Deficiency Other Hematologic History: Serpine1 4G/5G genotype, 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 Oncologic (Cancer) History: Reports: None Dermatologic History: Reports: Eczema - Infectious Disease History Infectious Disease History: Reports: None - Past Surgical History HEENT Surgical History: Reports: None Cardiovascular Surgical History: Reports: None Respiratory Surgical History: Reports: None GI Surgical History: Reports: Bariatric Procedure Other GI Surgeries/Procedures: malabsorption of iron, Female Surgical History: Reports: Endometrial Ablation Other Female Surgeries/Procedures: Laparoscopic procedure for endometriosis Musculoskeletal Surgical History: Reports: Other (See Below) Other Musculoskeletal Surgeries/Procedures:: Left wrist, Bunion on both feet Social & Family History - Family History Family Medical History: No Pertinent Family History - Tobacco Use Tobacco Use Status *Q: Current Every Day Tobacco User Years of Tobacco use: 20 Packs/Tins Daily: 0.5 - Caffeine Use Caffeine Use: Reports: Coffee, Soda - Recreational Drug Use Recreational Drug Use: No ED ROS ENT - Review of Systems Review Of Systems: Comprehensive ROS is negative, except as noted in HPI. ED EXAM, ENT - Physical Exam Exam: See Below Text/Narrative:: ABC intact. Obvious distress secondary to pain. No obvious trauma. Speaking in full sentences. Alert and oriented x3, GCS 456. Exam Limited By: No Limitations General Appearance: Alert, WD/WN, No Apparent Distress Eye Exam: Bilateral Eye: EOMI, PERRL Ears: Normal External Exam (Left), Normal Canal ( left), Hearing Grossly Normal, Normal TMs (Left) Nose: Normal Inspection, Normal Mucousa, No Blood Mouth/Throat: Normal Lips, Normal Oropharynx, Dental Abcess, Dental Pain, Dental Tenderness, Dental Trauma (Secondary to physical surgery). No: Lip Swelling, Lip Ulcers, Muffled Voice, Oral Ulcers, Peritonsillar Mass, Pharyngeal Erythema, Teething, Throat Pain, Throat Swelling, Tongue Swelling, Tonsillar Erythema, Tonsillar Exudates, Tonsillar Swelling, Uvular Deviation, Uvular Edema Head: Atraumatic, Normocephalic Neck: Normal Inspection, Non-Tender. No: Lymphadenopathy (R), Lymphadenopathy (L) Respiratory/Chest: No Respiratory Distress, Lungs Clear, Normal Breath Sounds, No Accessory Muscle Use, Chest Non-Tender Cardiovascular: Normal Peripheral Pulses, Regular Rate, Rhythm, No Edema, No Gallop, No JVD, No Murmur, No Rub Psychiatric: Normal Affect, Normal Mood Departure - Departure Time of Disposition: 10:00 Disposition: Home, Self-Care 01 Condition: Good Clinical Impression: Dental abscess - Discharge Information *PRESCRIPTION DRUG MONITORING PROGRAM REVIEWED*: No *COPY OF PRESCRIPTION DRUG MONITORING REPORT IN PATIENT TITI: No Prescriptions: Penicillin V Potassium 500 mg PO Q6HR 10 Days #40 tab Instructions: Dental Abscess, [id number] Referrals: PCP,None [Primary Care Provider] - Forms: ED Department Discharge Care Plan Goals: follow up with your dentist today. Take antibiotics every 6 hours as directed x 10 days. Keep dentures out and let abscess drain. Continue ibuprofen and tyl as directed for pain. Sepsis Event Note (ED) - Evaluation Sepsis Screening Result: No Definite Risk - Assessment/Plan Assessment:: 35-year-old female who presents to the read for evaluation of left jaw pain as detailed above. Evaluation today showed a post dental procedure abscess with pressurized purulent material draining from the opening left by tooth #20. Area of tooth #20 was acutely tender to palpation, there is no evidence of a surrounding abscess. There is no evidence of deep space infection of the neck or any sepsis-like syndrome. Patient was offered a dental block for pain control and received with relief after second attempt. Given the concern for apical abscess and dental infection the patient was given a prescription for penicillin VK 500 mg 4 times daily for 10 days. Patient has been taking an excessive amount of Tylenol secondary to her pain therefore patient with is being worked up for Tylenol overdose as well. Pain control decisions will be made after that work-up. The patient was thoroughly advised to seek dental care soon as possible. I discussed with the patient that these medications did not represent definitive care for the tooth infection and definitive care by dentist is needed. Patient is aware and I am not a dentist and that we do not refill pain medications in the ED. Patient was also given a dental resource sheet. Patient will return to ED for fever, uncontrolled pain, inability to tolerate oral intake, or onset of facial swelling. Patient expressed understanding. Tylenol overdose work-up to include Tylenol level, LFTs, INR. * Tylenol level 31.7 * Negative for abdominal pain, irritability, generalized weakness, loss of appetite, jaundice, diarrhea, nausea, vomiting, convulsions or coma. * LFTs within normal limits. * INR 1.0 Plan: ABC, history, exam, ketorolac IM 3 mg, mandibular nerve block attempted x2 with lidocaine 1% with epi/bupivacaine, successful after second attempt, patient education/shared decision-making in regards to seeking dental care immediately, amatory prescription written for penicillin VK 4 times daily 500 mg for 10 days, labs were drawn for acetaminophen, LFTs and INR. Poison control to be contacted after we get those results. Patient was able to secure an appointment with her dentist today, will be leaving ED with cart driver to [place] for same. <Zac Catherine R - Last Filed: 07/11/21 10:04> Course - Vital Signs Last Recorded V/S: Last Vital Signs Temp 97.8 F 07/10/21 07:11 Pulse 119 H 07/10/21 07:11 Resp 16 07/10/21 07:11 BP 112/81 07/10/21 07:11 Pulse Ox 98 07/10/21 07:11 - Orders/Labs/Meds Labs: Laboratory Tests 07/10/21 07/10/21 07/10/21 Range/Units 08:32 08:44 08:44 PT 10.1 (9.0-11.5) sec INR 1.0 (1.0-3.5) Sodium 141 (136-145) mmol/L Potassium 4.1 D (3.5-5.1) mmol/L Chloride 106 (98-107) mmol/L Carbon Dioxide 23.2 (21.0-32.0) mmol/L Anion Gap 15.9 H (5.0-15.0) mmol/L BUN 12 D (8-26) mg/dL Creatinine 0.95 (0.55-1.02) mg/dL Est Cr Clr Drug Dosing 71.37 mL/min Estimated GFR (MDRD) > 60 (>60) MLS/MIN BUN/Creatinine Ratio 12.6 (6-25) Glucose 123 H D (74-100) mg/dL Calcium 8.8 (8.5-10.1) mg/dL Total Bilirubin 0.4 D (0.0-1.0) mg/dL AST 27 (15-37) U/L ALT 36 (12-78) U/L Alkaline Phosphatase 115 (46-116) U/L Total Protein 6.7 (6.4-8.2) g/dL Albumin 3.5 (3.4-5.0) g/dL Globulin 3.2 (2.2-4.2) g/dL Albumin/Globulin Ratio 1.1 (0.8-2.0) Acetaminophen 31.7 ug/mL Meds: Medications Discontinued Medications Generic Name Dose Route Start Last Admin Trade Name Nabil PRN Reason Stop Dose Admin Hydromorphone HCl 1 mg 07/10/21 09:34 07/10/21 09:39 Hydromorphone 2 Mg/Ml Sdv IM 07/10/21 09:35 1 mg ONETIME ONE Administration Hydromorphone HCl Confirm 07/10/21 09:47 07/10/21 09:40 Hydromorphone 2 Mg/Ml Sdv Administered 07/10/21 09:48 Not Given Dose 2 mg .ROUTE .STK-MED ONE Ketorolac Tromethamine 30 mg 07/10/21 07:22 07/10/21 07:26 Ketorolac 60 Mg/2 Ml Sdv IM 07/10/21 07:23 30 mg ONETIME ONE Administration Ketorolac Tromethamine Confirm 07/10/21 07:35 07/10/21 07:29 Ketorolac 30 Mg/Ml Sdv Administered 07/10/21 07:36 Not Given Dose 30 mg .ROUTE .STK-MED ONE - Re-Assessments/Exams Free Text/Narrative Re-Assessment/Exam: 07/11/21 10:01 I did see the pt briefly today. She made arrangements to go to [place] today to see the Dentist. She is still in pain, so I gave her Dilaudid 1 mg IM. Her Tylenol and LFT levels are ok, and she is not having any symptoms of toxicity. End of Addendum.
[2021-07-10] MEDS: HYDROmorphone 2 MG/ML SDV IM ONE (09:39)
[2021-07-10] MEDS: HYDROmorphone 2 MG/ML SDV ONE (09:40)
== END 2021-07-10 09:53 | disposition home or self-care (01) ==
LOC: LB.ED 07:00
DX: K04.7 Periapical abscess without sinus (principal); I10 Essential (primary) hypertension; Z88.5 Allergy status to narcotic agent; Z88.2 Allergy status to sulfonamides
CPT/HCPCS: 36415; 64400; 80053; 80143; 85610; 96372; 99283; J1170; J1885

== ENCOUNTER 2021-08-07 19:03 | Emergency (ER) | payer BC ==
[2021-08-07 19:44] VITALS: BP 122/91; PULSE 96
--- NOTE | 2021-08-07 20:36 | EDM.PDOC ---
ED HPI GENERAL MEDICAL PROBLEM - General Chief Complaint: Laceration Stated Complaint: CUT FINGERS Time Seen by Provider: 08/07/21 19:20 Source of Information: Reports: Patient History Limitations: Reports: No Limitations - History of Present Illness INITIAL COMMENTS - FREE TEXT/NARRATIVE: 35-year-old female who presents to the emergency department with a laceration distal tip right index finger/second digit, and distal tip left middle finger/third digit. No other complaints. Patient was cutting vegetables when she cut her hand with a knife at her home. Bleeding was controlled prior to arrival to the ED. - Related Data Allergies Allergy/AdvReac Type Severity Reaction Status Date / Time codeine Allergy Rash Verified 07/10/21 07:11 Home Meds: Home Meds Cyanocobalamin (Vitamin B-12) [Cyanocobalamin Injection] 1,000 mcg IM ASDIRECTED 08/31/18 [History] Zolpidem Tartrate [Zolpidem Tartrate ER] 12.5 mg PO QPM 08/31/18 [History] Linaclotide [Linzess] 145 mg PO ASDIRECTED PRN 09/19/20 [History] QUEtiapine [SEROquel] 500 mg PO DAILY 09/19/20 [History] Penicillin V Potassium 500 mg PO Q6HR 10 Days #40 tab 07/10/21 [Rx] buPROPion [Wellbutrin] 200 mg PO DAILY 07/10/21 [History] clonazePAM [Clonazepam] 0.5 mg PO BID PRN 07/10/21 [History] Past Medical History HEENT History: Reports: Impaired Vision, Other (See Below) Other HEENT History: wears eye glasses Cardiovascular History: Reports: Other (See Below) Other Cardiovascular History: hypertension due to pre-eclampsia Respiratory History: Reports: PE Other Respiratory History: history of pulmonary embolism while Gastrointestinal History: Reports: None Other Gastrointestinal History: gastric bypass 2006 Genitourinary History: Reports: None PIGMENT WEIGHER History: Reports: Endometriosis, Polycystic Ovaries, , Other (See Below) Other PIGMENT WEIGHER History: 2 miscarriages, adenomyosis, complete hysterectomy 07/17/2019 Musculoskeletal History: Reports: Other (See Below) Other Musculoskeletal History: 2 wrist surgeries Neurological History: Reports: None Psychiatric History: Reports: Anxiety, Depression, Panic Attack Other Psychiatric History: Major depressive disorder, recurrent, Panic disorder with agoraphobia, ADHD predominantly inattentive type Endocrine/Metabolic History: Reports: None Hematologic History: Reports: Anemia, B12 Deficiency Other Hematologic History: Serpine1 4G/5G genotype, 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 Oncologic (Cancer) History: Reports: None Dermatologic History: Reports: Eczema - Infectious Disease History Infectious Disease History: Reports: None - Past Surgical History HEENT Surgical History: Reports: None Cardiovascular Surgical History: Reports: None Respiratory Surgical History: Reports: None GI Surgical History: Reports: Bariatric Procedure Other GI Surgeries/Procedures: malabsorption of iron, Female Surgical History: Reports: Endometrial Ablation Other Female Surgeries/Procedures: Laparoscopic procedure for endometriosis Musculoskeletal Surgical History: Reports: Other (See Below) Other Musculoskeletal Surgeries/Procedures:: Left wrist, Bunion on both feet Social & Family History - Family History Family Medical History: No Pertinent Family History - Caffeine Use Caffeine Use: Reports: Coffee, Soda - Recreational Drug Use Recreational Drug Use: No ED ROS GENERAL - Review of Systems Review Of Systems: Comprehensive ROS is negative, except as noted in HPI. Reason Not Obtained: Exam limited to right and left hand Constitutional: Reports: No Symptoms ED EXAM, SKIN/RASH Exam: See Below Text/Narrative:: ABC intact. No apparent distress. No obvious trauma. Speaking in full sentences. Alert and oriented x3, GCS 456. Right hand second digit distal tip oblique linear clean laceration approximately 1 cm shallow, bleeding controlled, no tendon involvement, no nailbed involvement. Left hand third digit distal tip oblique linear clean laceration approximately 0.8 cm shallow, bleeding controlled, no tendon involvement, no nailbed involvement. Exam Limited By: No Limitations General Appearance: Alert, WD/WN, No Apparent Distress Eye Exam: Bilateral Eye: EOMI, PERRL Ears: Normal External Exam, Hearing Grossly Normal Throat/Mouth: Normal Voice, No Airway Compromise Head: Atraumatic, Normocephalic Respiratory/Chest: No Respiratory Distress, No Accessory Muscle Use Neurological: Alert, Oriented, Normal Cognition Psychiatric: Normal Affect, Normal Mood Skin: Warm, Dry, Normal Color ED SKIN PROCEDURES - Laceration/Wound Repair Right Digit - 2nd (Index) Appearance: Superficial, Linear, Clean, Other (Oblique) Distal NVT: Neuro & Vascular Intact, No Tendon Injury Skin Prep: Chlorhexidine (Hibiciens) Exploration/Debridement/Repair: Wound Explored, Explored to Base Closed with: Steri-Strips Lac/Wound length In cm: 1 Tetanus Status Addressed: Yes Complications: No Left Digit - 3rd (Middle) Appearance: Superficial, Linear, Clean, Other (Oblique) Distal NVT: Neuro & Vascular Intact, No Tendon Injury Skin Prep: Chlorhexidine (Hibiciens) Exploration/Debridement/Repair: Wound Explored Closed with: Steri-Strips Lac/Wound length In cm: 0.8 Tetanus Status Addressed: Yes Complications: No Course - Vital Signs Last Recorded V/S: Last Vital Signs Temp 96.5 F L 08/07/21 19:43 Pulse 96 08/07/21 19:43 Resp 20 08/07/21 19:43 BP 122/91 H 08/07/21 19:43 Pulse Ox 98 08/07/21 19:43 Departure - Departure Time of Disposition: 20:39 Disposition: Home, Self-Care 01 Condition: Good Clinical Impression: Laceration of right index finger Qualifiers: Encounter type: initial encounter Damage to nail status: without damage Foreign body presence: without foreign body Qualified Code(s): S61.210A - Laceration without foreign body of right index finger without damage to nail, initial encounter Laceration of left middle finger Qualifiers: Encounter type: initial encounter Damage to nail status: without damage Foreign body presence: without foreign body Qualified Code(s): S61.213A - Laceration wi thout foreign body of left middle finger without damage to nail, initial encounter - Discharge Information *PRESCRIPTION DRUG MONITORING PROGRAM REVIEWED*: No *COPY OF PRESCRIPTION DRUG MONITORING REPORT IN PATIENT TITI: No Instructions: Laceration Care, Adult Referrals: PCP,None [Primary Care Provider] - Sepsis Event Note (ED) - Evaluation Sepsis Screening Result: No Definite Risk - Focused Exam Vital Signs: Vital Signs Temp Pulse Resp BP Pulse Ox 08/07/21 19:43 96.5 F L 96 20 122/91 H 98 - Problem List & Annotations (1) Laceration of left middle finger SNOMED Code(s): 94951420200034330 Code(s): S61.213A - LACERATION W/O FB OF L MID FINGER W/O DAMAGE TO NAIL, INIT Status: Acute Priority: Low Current Visit: Yes Qualifiers: Encounter type: initial encounter Damage to nail status: without damage Foreign body presence: without foreign body Qualified Code(s): S61.213A - Laceration without foreign body of left middle finger without damage to nail, initial encounter (2) Laceration of right index finger SNOMED Code(s): 50909391819571506 Code(s): S61.210A - LACERATION W/O FB OF R IDX FNGR W/O DAMAGE TO NAIL, INIT Status: Acute Priority: Low Current Visit: Yes Qualifiers: Encounter type: initial encounter Damage to nail status: without damage Foreign body presence: without foreign body Qualified Code(s): S61.210A - Laceration without foreign body of right index finger without damage to nail, initial encounter - Problem List Review Problem List Initiated/Reviewed/Updated: No - Assessment/Plan Assessment:: 1. Laceration right index finger 2. Laceration left middle finger Plan: ABC, history, exam, wound irrigation, Steri-Strip application, Band-Aid coverings, patient education/shared decision-making, patient to keep Steri- Strips in place at least 7 to 10 days, tetanus is up-to-date, signs of infection were explained to patient and if they manifest to reach out to me for antibiotic therapy, patient given additional Steri-Strips if replacements are needed. -Patient and/or sales representative meats understood and agreed to treatment plan. -All questions were answered to the patient's satisfaction. -Patient is discharged in stable condition. Patient to return to the ED if symptoms of infection become evident. Follow-up with primary care provider if necessary.
== END 2021-08-07 20:48 | disposition home or self-care (01) ==
LOC: LB.ED 19:03
DX: S61.210A Laceration without foreign body of right index finger without damage to nail, initial encounter (principal); S61.213A Laceration without foreign body of left middle finger without damage to nail, initial encounter; I10 Essential (primary) hypertension; Z88.5 Allergy status to narcotic agent; W26.0XXA Contact with knife, initial encounter; Y92.009 Unspecified place in unspecified non-institutional (private) residence as the place of occurrence of the external cause
CPT/HCPCS: 99282

== ENCOUNTER 2021-10-07 11:16 | Emergency (ER) | payer BC ==
[2021-10-07 11:39] VITALS: BP 132/83; PULSE 91
[2021-10-07] MEDS: Phenazopyridine 100 MG Tab PO ONE (11:57)
[2021-10-07] MEDS: Ondansetron 4 MG Tab.DIS PO ONE (11:58)
[2021-10-07] MEDS: Ketorolac 30 MG/ML SDV IM ONE (12:00)
[2021-10-07 12:20] LABS: UROTHELIAL CELLS,URINE NOT SEEN /HPF
[2021-10-07] MEDS ORDERED: Nitrofurantoin Macrocrystal 50 MG Cap ONE ×2 (12:48→12:50)
[2021-10-07] MEDS ORDERED: Ketorolac 10 MG Tab ONE (12:50)
[2021-10-07] MEDS ORDERED: Phenazopyridine 100 MG Tab ONE (12:50)
== END 2021-10-07 12:55 | disposition home or self-care (01) ==
LOC: LB.ED 11:16
DX: N30.10 Interstitial cystitis (chronic) without hematuria (principal); Z88.5 Allergy status to narcotic agent; Z72.0 Tobacco use
CPT/HCPCS: 36415; 81001; 85025; 93005; 96372; 99283; 99284-25; A9270-GY; J1885; Q0162

== ENCOUNTER 2021-11-03 10:56 | Emergency (ER) | payer BC ==
[2021-11-03] MEDS ORDERED: HYDROmorphone 2 MG/ML SDV IM ONE (11:10)
[2021-11-03] MEDS: HYDROmorphone 2 MG/ML SDV ONE ×2 (11:10→12:14)
== END 2021-11-03 12:29 | disposition home or self-care (01) ==
LOC: LB.ED 10:56
DX: R10.31 Right lower quadrant pain (principal)
CPT/HCPCS: 96372; 99283; J1170

== ENCOUNTER 2021-11-06 08:32 | Emergency (ER) | payer BC ==
[2021-11-06 08:59] VITALS: BP 122/77; PULSE 121
[2021-11-06] MEDS: HYDROmorphone 2 MG/ML SDV IM ONE ×3 (09:15→10:52)
[2021-11-06] MEDS: HYDROmorphone 2 MG/ML SDV ONE (09:32)
[2021-11-06] MEDS ORDERED: HYDROmorphone 2 MG/ML SDV ONE (10:54)
== END 2021-11-06 10:58 | disposition home or self-care (01) ==
LOC: LB.ED 08:32
DX: R10.9 Unspecified abdominal pain (principal); G89.29 Other chronic pain; Z87.42 Personal history of other diseases of the female genital tract
CPT/HCPCS: 36415; 81003; 85025; 96372; 99283; 99284; J1170

== ENCOUNTER 2021-11-06 19:41 | Emergency (ER) | payer BC ==
[2021-11-06 20:00] VITALS: BP 129/92; PULSE 98
[2021-11-06] MEDS: Ketorolac 60 MG/2 ML SDV IM ONE (20:10)
[2021-11-06] MEDS: Ketorolac 60 MG/2 ML SDV ONE (20:14)
[2021-11-06] MEDS ORDERED: Acetaminophen/HYDROcodone 325-5 MG Tab ONE (22:00)
[2021-11-06] MEDS: HYDROmorphone 2 MG/ML SDV IM ONE (22:10)
[2021-11-06] MEDS: HYDROmorphone 2 MG/ML SDV ONE (22:16)
== END 2021-11-06 22:18 | disposition home or self-care (01) ==
LOC: LB.ED 19:41
DX: R10.31 Right lower quadrant pain (principal); Z87.42 Personal history of other diseases of the female genital tract
CPT/HCPCS: 96372; 99283; A9270-GY; J1170; J1885

== ENCOUNTER 2022-04-27 07:05 | Emergency (ER) | payer BC ==
[2022-04-27] MEDS ORDERED: Lactated Ringers 1,000 ML IV ONE (07:34)
[2022-04-27 07:56] LABS: ESTIMATED GFR 83 mL/min (>60)
[2022-04-27 07:57] VITALS: BP 121/64; PULSE 97
[2022-04-27] MEDS ORDERED: Ketorolac 30 MG/ML SDV IVPUSH ONE (09:01)
[2022-04-27] MEDS ORDERED: traMADol 50 MG Tab PO ONE (09:30)
[2022-04-27] MEDS ORDERED: Ketorolac 60 MG/2 ML SDV IVPUSH ONE (09:30)
== END 2022-04-27 10:25 | disposition home or self-care (01) ==
LOC: LB.ED 07:05
DX: R55 Syncope and collapse (principal); R07.82 Intercostal pain; Z79.899 Other long term (current) drug therapy; Z88.5 Allergy status to narcotic agent; Z90.710 Acquired absence of both cervix and uterus
CPT/HCPCS: 36415; 71101; 80048; 85027; 93005; 93010; 96361; 96374; 96376; 99283; 99284; A9270; J1885; J7120

== ENCOUNTER 2022-05-26 11:32 | Emergency (ER) | payer BC ==
[2022-05-26 13:44] VITALS: BP 113/72; PULSE 97
== END 2022-05-26 13:45 | disposition home or self-care (01) ==
LOC: LB.ED 11:32
DX: R07.89 Other chest pain (principal); I10 Essential (primary) hypertension; D64.9 Anemia, unspecified; Z86.711 Personal history of pulmonary embolism; Z88.5 Allergy status to narcotic agent; Z79.899 Other long term (current) drug therapy
CPT/HCPCS: 36415; 80053; 84484; 85027; 99284

== ENCOUNTER 2022-12-16 09:40 | Emergency (ER) | payer BC ==
[2022-12-16 10:10] LABS: BASOPHILS ABSOLUTE AUTO 0.03 K/uL (0.02-0.10); BASOPHILS PERCENT AUTO 0.3 % (0.0-0.5); EOSINOPHILS ABSOLUTE AUTO 0.06 K/uL (0.04-0.40); EOSINOPHILS PERCENT AUTO 0.5 % (1.0-5.0); HEMATOCRIT 41.9 % (37.0-47.0); LYMPHOCYTES ABSOLUTE AUTO 1.96 K/uL (1.50-4.00); LYMPHOCYTES PERCENT AUTO 17.3 % (20.0-40.0); MEAN CORPUSCULAR HGB CONC 33.4 g/dL (31.0-35.0); MEAN CORPUSCULAR VOLUME 90 fL (76-96); MONOCYTES ABSOLUTE AUTO 1.35 K/uL (0.20-0.80); MONOCYTES PERCENT AUTO 11.9 % (3.0-10.0); NEUTROPHILS ABSOLUTE AUTO 7.92 K/uL (2.00-7.50); PLATELET COUNT,PLT 310 K/uL (150-500); RED BLOOD CELL COUNT 4.66 M/uL (3.80-5.80); RED CELL DISTRIBUTION WIDTH 14.1 % (11.0-16.0); WHITE BLOOD CELL COUNT,WBC 11.3 K/uL (4.0-11.0)
[2022-12-16 10:17] VITALS: BP 104/73; PULSE 120
[2022-12-16] MEDS ORDERED: Metoclopramide 10 MG/2 ML SDV IV PRN (10:22)
[2022-12-16] MEDS ORDERED: Metoclopramide 10 MG/2 ML SDV ONE (10:23)
[2022-12-16] MEDS ORDERED: Sodium Chloride 0.9% 1,000 ML IV ONE (10:26)
[2022-12-16 10:37] LABS: A/G RATIO 1.1 (0.8-2.0); ALANINE AMINOTRANSFERASE,ALT 18 U/L (12-78); ALBUMIN 4.1 g/dL (3.4-5.0); ALKALINE PHOSPHATASE 93 U/L (46-116); ANION GAP 24.6 mmol/L (5.0-15.0); ASPARTATE AMNIOTRANSFERASE,AST 10 U/L (15-37); BILIRUBIN TOTAL 0.7 mg/dL (0.0-1.0); BLOOD UREA NITROGEN,BUN 12 mg/dL (8-26); BUN/CREATININE RATIO 13.5 (6-25); CALCIUM 9.9 mg/dL (8.5-10.1); CARBON DIOXIDE,CO2 16.2 mmol/L (21.0-32.0); CHLORIDE,CL 101 mmol/L (98-107); CREATININE 0.89 mg/dL (0.55-1.02); ESTIMATED GFR 86 mL/min (>60); GLUCOSE RANDOM 87 mg/dL (74-100); MAGNESIUM 1.5 mg/dL (1.8-2.4); POTASSIUM,K 3.8 mmol/L (3.5-5.1); SODIUM,NA 138 mmol/L (136-145)
[2022-12-16] MEDS ORDERED: Magnesium Sulfate/Water 4 GM in Premix Bag 1 BAG IV ONE (10:47)
[2022-12-16 10:59] LABS: INFLUENZA A NAA NEGATIVE (NEGATIVE); INFLUENZA B NAA NEGATIVE (NEGATIVE); RESPIRATORY SYNCYTIAL VIR NAA NEGATIVE (NEGATIVE)
[2022-12-16 11:00] LABS: CORONAVIRUS COVID-19 NAA NEGATIVE (NEGATIVE)
[2022-12-16 11:19] LABS: BASE EXCESS ARTERIAL -10.6 (-2-2); BICARBONATE,ARTERIAL 15.2 mmol/L (22-26); O2 SATURATION ARTERIAL 97.7 % (95-98); PCO2 ARTERIAL 27.9 mmHg (35-45); PO2 ARTERIAL 102.9 mmHg (80-105)
[2022-12-16] MEDS ORDERED: Acetaminophen/HYDROcodone 325-5 MG Tab PO ONE (11:59)
[2022-12-16] MEDS ORDERED: Acetaminophen/HYDROcodone 325-5 MG Tab ONE (12:05)
== END 2022-12-16 15:10 | disposition home or self-care (01) ==
LOC: LB.ED 09:40
DX: K59.03 Drug induced constipation (principal); T50.905A Adverse effect of unspecified drugs, medicaments and biological substances, initial encounter; E86.0 Dehydration; R11.2 Nausea with vomiting, unspecified; I10 Essential (primary) hypertension; E66.9 Obesity, unspecified; Z68.30 Body mass index [BMI] 30.0-30.9, adult; Z88.5 Allergy status to narcotic agent; Z20.822 Contact with and (suspected) exposure to COVID-19
CPT/HCPCS: 0241U; 36415; 36600; 71046; 80053; 82803; 83605; 83735; 85025; 96361; 96365; 96366; 96375; 99284; A9270; J2765; J3475; J7030

== ENCOUNTER 2023-06-28 10:38 | Emergency (ER) | payer BC ==
[2023-06-28 10:49] VITALS: BP 108/73; PULSE 81
[2023-06-28] MEDS ORDERED: Morphine 4 MG/ML VIAL IVPUSH ONE (10:53)
[2023-06-28] MEDS ORDERED: Sodium Chloride 0.9% 10 ML Syringe FLUSH PRN (10:53)
[2023-06-28 11:06] LABS: BASOPHILS ABSOLUTE AUTO 0.03 K/uL (0.02-0.10); BASOPHILS PERCENT AUTO 0.4 % (0.0-0.5); EOSINOPHILS ABSOLUTE AUTO 0.07 K/uL (0.04-0.40); HEMATOCRIT 39.1 % (37.0-47.0); HEMOGLOBIN 12.6 g/dL (11.5-16.5); LYMPHOCYTES ABSOLUTE AUTO 2.22 K/uL (1.50-4.00); LYMPHOCYTES PERCENT AUTO 31.5 % (20.0-40.0); MEAN CORPUSCULAR HEMOGLOBIN 30.6 pg (27.0-32.0); MEAN CORPUSCULAR HGB CONC 32.2 g/dL (31.0-35.0); MEAN CORPUSCULAR VOLUME 95 fL (76-96); MEAN PLATELET VOLUME 9.1 fL (6.0-10.0); MONOCYTES ABSOLUTE AUTO 0.82 K/uL (0.20-0.80); MONOCYTES PERCENT AUTO 11.6 % (3.0-10.0); NEUTROPHILS PERCENT AUTO 55.5 % (45.0-70.0); PLATELET COUNT,PLT 225 K/uL (150-500); RED BLOOD CELL COUNT 4.12 M/uL (3.80-5.80); RED CELL DISTRIBUTION WIDTH 14.8 % (11.0-16.0)
[2023-06-28 11:23] LABS: APPEARANCE,URINE SLIGHTLY CLOUDY (CLEAR); BILIRUBIN,URINE NEGATIVE (NEGATIVE); COLOR,URINE YELLOW; GLUCOSE,URINE NEGATIVE (NEGATIVE); KETONES,URINE NEGATIVE (NEGATIVE); LEUKOCYTE ESTERASE,URINE NEGATIVE (NEGATIVE); NITRITE,URINE NEGATIVE (NEGATIVE); OCCULT BLOOD,URINE NEGATIVE (NEGATIVE); PH,URINE 6.5 (5.0-8.0); PROTEIN,URINE NEGATIVE (NEGATIVE); UROBILINOGEN,URINE 0.2 E.U./dL (0.2-1.0)
[2023-06-28 11:29] LABS: A/G RATIO 1.2 (0.8-2.0); ALBUMIN 3.7 g/dL (3.4-5.0); ANION GAP 13.6 mmol/L (5.0-15.0); BILIRUBIN TOTAL 0.3 mg/dL (0.0-1.0); BUN/CREATININE RATIO 18.2 (6-25); CALCIUM 9.4 mg/dL (8.5-10.1); CARBON DIOXIDE,CO2 29.1 mmol/L (21.0-32.0); CREATININE 0.66 mg/dL (0.55-1.02); EST CRCL DRUG DOSING (CG) 96.54 mL/min; POTASSIUM,K 3.7 mmol/L (3.5-5.1); PROTEIN TOTAL,TP 6.9 g/dL (6.4-8.2)
== END 2023-06-28 13:21 | disposition home or self-care (01) ==
LOC: LB.ED 10:38
DX: K59.09 Other constipation (principal); F11.90 Opioid use, unspecified, uncomplicated; Z88.5 Allergy status to narcotic agent
CPT/HCPCS: 36415; 74176; 80053; 81003; 83605; 85025; 96374; 99284; J2270

== ENCOUNTER 2023-06-30 08:46 | Emergency (ER) | payer BC ==
[2023-06-30 08:54] VITALS: BP 126/85; PULSE 102
[2023-06-30] MEDS ORDERED: Morphine 4 MG/ML VIAL IVPUSH ONE ×2 (08:59→10:54)
[2023-06-30] MEDS ORDERED: Sodium Chloride 0.9% 10 ML Syringe FLUSH PRN (08:59)
[2023-06-30] MEDS ORDERED: Morphine 4 MG/ML VIAL ONE ×2 (09:02→11:22)
[2023-06-30 09:19] LABS: HEMATOCRIT 37.7 % (37.0-47.0); HEMOGLOBIN 12.2 g/dL (11.5-16.5); MEAN CORPUSCULAR HEMOGLOBIN 30.5 pg (27.0-32.0); MEAN CORPUSCULAR HGB CONC 32.4 g/dL (31.0-35.0); MEAN CORPUSCULAR VOLUME 94 fL (76-96); MEAN PLATELET VOLUME 9.3 fL (6.0-10.0); NEUTROPHILS PERCENT AUTO 52.5 % (45.0-70.0); PLATELET COUNT,PLT 227 K/uL (150-500); RED CELL DISTRIBUTION WIDTH 14.6 % (11.0-16.0); WHITE BLOOD CELL COUNT,WBC 6.1 K/uL (4.0-11.0)
[2023-06-30 09:20] LABS: BASOPHILS ABSOLUTE AUTO 0.03 K/uL (0.02-0.10); BASOPHILS PERCENT AUTO 0.5 % (0.0-0.5); EOSINOPHILS ABSOLUTE AUTO 0.08 K/uL (0.04-0.40); EOSINOPHILS PERCENT AUTO 1.3 % (1.0-5.0); LYMPHOCYTES ABSOLUTE AUTO 1.99 K/uL (1.50-4.00); LYMPHOCYTES PERCENT AUTO 32.8 % (20.0-40.0); MONOCYTES ABSOLUTE AUTO 0.78 K/uL (0.20-0.80); MONOCYTES PERCENT AUTO 12.9 % (3.0-10.0); NEUTROPHILS ABSOLUTE AUTO 3.19 K/uL (2.00-7.50)
[2023-06-30 09:28] LABS: APPEARANCE,URINE CLEAR (CLEAR); BILIRUBIN,URINE NEGATIVE (NEGATIVE); COLOR,URINE YELLOW; GLUCOSE,URINE NEGATIVE (NEGATIVE); KETONES,URINE NEGATIVE (NEGATIVE); LEUKOCYTE ESTERASE,URINE NEGATIVE (NEGATIVE); NITRITE,URINE NEGATIVE (NEGATIVE); OCCULT BLOOD,URINE TRACE-INTACT (NEGATIVE); PROTEIN,URINE NEGATIVE (NEGATIVE); UROBILINOGEN,URINE 0.2 E.U./dL (0.2-1.0)
[2023-06-30 09:32] LABS: RBC,URINE 0-5 /HPF; SQUAMOUS EPITHELIAL CELLS,UR FEW /HPF; WBC,URINE NOT SEEN /HPF
[2023-06-30 09:36] LABS: A/G RATIO 1.1 (0.8-2.0); ALBUMIN 3.3 g/dL (3.4-5.0); ANION GAP 12.3 mmol/L (5.0-15.0); BILIRUBIN TOTAL 0.4 mg/dL (0.0-1.0); BUN/CREATININE RATIO 14.3 (6-25); CREATININE 0.63 mg/dL (0.55-1.02); EST CRCL DRUG DOSING (CG) 101.14 mL/min; POTASSIUM,K 3.3 mmol/L (3.5-5.1); PROTEIN TOTAL,TP 6.4 g/dL (6.4-8.2)
[2023-06-30] MEDS ORDERED: HYDROmorphone 2 MG Tab ONE ×2 (10:00→14:52)
[2023-06-30] MEDS ORDERED: Ondansetron 4 MG/2 ML SDV IVPUSH ONE (10:54)
[2023-06-30] MEDS ORDERED: Ondansetron 4 MG/2 ML SDV ONE ×2 (11:23→11:27)
[2023-06-30] MEDS ORDERED: Iopamidol 612 MG/ML 100 ML Bottle IV PRN (11:36)
[2023-06-30] MEDS ORDERED: Sodium Chloride 0.9% 50 ML SDV FLUSH SCH (11:45)
[2023-06-30] MEDS ORDERED: HYDROmorphone 2 MG/ML Syringe IVPUSH ONE (12:46)
[2023-06-30] MEDS ORDERED: Pantoprazole 40 MG Vial IVPUSH ONE (12:47)
[2023-06-30] MEDS ORDERED: HYDROmorphone 2 MG/ML Syringe ONE (13:49)
[2023-06-30] MEDS ORDERED: Pantoprazole 40 MG Vial ONE (13:55)
== END 2023-06-30 15:10 | disposition home or self-care (01) ==
LOC: LB.ED 08:46
DX: R10.84 Generalized abdominal pain (principal); F11.90 Opioid use, unspecified, uncomplicated; Z88.5 Allergy status to narcotic agent; Z90.710 Acquired absence of both cervix and uterus
CPT/HCPCS: 36415; 74177; 80053; 81001; 85025; 96374; 96375; 96376; 99284; 99284-25; A9270-GY; C9113; J1170; J2270; J2405; J3490; Q9967

== ENCOUNTER 2023-07-22 16:12 | Emergency (ER) | payer BC ==
[2023-07-22] MEDS ORDERED: Sodium Chloride 0.9% 10 ML Syringe FLUSH PRN (17:09)
[2023-07-22] MEDS ORDERED: Sodium Chloride 0.9% 1,000 ML IV ONE (17:10)
[2023-07-22] MEDS ORDERED: Morphine 2 MG/ML SYRINGE IVPUSH ONE ×2 (17:12→17:39)
[2023-07-22] MEDS ORDERED: Morphine 2 MG/ML SYRINGE ONE ×2 (17:17→17:39)
[2023-07-22 17:26] LABS: BASOPHILS ABSOLUTE AUTO 0.02 K/uL (0.02-0.10); BASOPHILS PERCENT AUTO 0.2 % (0.0-0.5); EOSINOPHILS ABSOLUTE AUTO 0.08 K/uL (0.04-0.40); EOSINOPHILS PERCENT AUTO 0.8 % (1.0-5.0); HEMATOCRIT 37.3 % (37.0-47.0); HEMOGLOBIN 11.9 g/dL (11.5-16.5); LYMPHOCYTES ABSOLUTE AUTO 2.57 K/uL (1.50-4.00); LYMPHOCYTES PERCENT AUTO 26.3 % (20.0-40.0); MEAN CORPUSCULAR HGB CONC 31.9 g/dL (31.0-35.0); MEAN CORPUSCULAR VOLUME 94 fL (76-96); MEAN PLATELET VOLUME 9.4 fL (6.0-10.0); MONOCYTES ABSOLUTE AUTO 1.25 K/uL (0.20-0.80); MONOCYTES PERCENT AUTO 12.8 % (3.0-10.0); NEUTROPHILS ABSOLUTE AUTO 5.87 K/uL (2.00-7.50); NEUTROPHILS PERCENT AUTO 59.9 % (45.0-70.0); PLATELET COUNT,PLT 232 K/uL (150-500); RED BLOOD CELL COUNT 3.97 M/uL (3.80-5.80); RED CELL DISTRIBUTION WIDTH 13.8 % (11.0-16.0); WHITE BLOOD CELL COUNT,WBC 9.8 K/uL (4.0-11.0)
[2023-07-22 17:42] LABS: ALBUMIN 3.4 g/dL (3.4-5.0); ANION GAP 11.6 mmol/L (5.0-15.0); BILIRUBIN TOTAL 0.5 mg/dL (0.0-1.0); BUN/CREATININE RATIO 15.5 (6-25); CALCIUM 8.8 mg/dL (8.5-10.1); CARBON DIOXIDE,CO2 26.7 mmol/L (21.0-32.0); CREATININE 0.71 mg/dL (0.55-1.02); EST CRCL DRUG DOSING (CG) 89.74 mL/min; MAGNESIUM 1.8 mg/dL (1.8-2.4); POTASSIUM,K 3.3 mmol/L (3.5-5.1); PROTEIN TOTAL,TP 6.7 g/dL (6.4-8.2)
[2023-07-22] MEDS ORDERED: Potassium Chloride 10 MEQ Tab.ER PO ONE (17:49)
[2023-07-22] MEDS ORDERED: Ketorolac 30 MG/ML SDV ONE (17:52)
[2023-07-22] MEDS ORDERED: Ketorolac 30 MG/ML SDV IVPUSH ONE (17:52)
[2023-07-22] MEDS ORDERED: GI Cocktail Oral Solution 30 ML PO ONE (17:52)
[2023-07-22] MEDS ORDERED: Aluminum Hydroxide/Magnesium Hydroxide/Simethicone Susp 30 ML Cup PO SCH (17:56)
[2023-07-22] MEDS ORDERED: Lidocaine 2% Viscous Solution 15 ML UD PO ONE (17:56)
[2023-07-22 18:40] VITALS: BP 138/86; PULSE 72
== END 2023-07-22 18:20 | disposition home or self-care (01) ==
LOC: LB.ED 16:12
DX: K59.00 Constipation, unspecified (principal); E87.6 Hypokalemia; F17.210 Nicotine dependence, cigarettes, uncomplicated; E66.9 Obesity, unspecified; Z68.25 Body mass index [BMI] 25.0-25.9, adult; Z79.899 Other long term (current) drug therapy; Z88.5 Allergy status to narcotic agent
CPT/HCPCS: 36415; 80053; 83690; 83735; 85025; 96361; 96374; 96375; 99283; 99284-25; A9270-GY; J1885; J2270; J7030

== ENCOUNTER 2023-08-04 13:46 | Emergency (ER) | payer BC ==
[2023-08-04] MEDS ORDERED: Sodium Chloride 0.9% 10 ML Syringe FLUSH PRN (14:22)
[2023-08-04] MEDS ORDERED: Magnesium Hydroxide 400 MG/5 ML Susp 30 ML Cup PO PRN (14:22)
[2023-08-04] MEDS ORDERED: Ketorolac 60 MG/2 ML SDV IVPUSH ONE (14:23)
[2023-08-04] MEDS ORDERED: Sodium Chloride 0.9% 1,000 ML IV SCH (14:30)
[2023-08-04] MEDS ORDERED: Ketorolac 60 MG/2 ML SDV ONE (14:41)
[2023-08-04 14:44] LABS: BASOPHILS ABSOLUTE AUTO 0.04 K/uL (0.02-0.10); BASOPHILS PERCENT AUTO 0.6 % (0.0-0.5); EOSINOPHILS ABSOLUTE AUTO 0.09 K/uL (0.04-0.40); EOSINOPHILS PERCENT AUTO 1.3 % (1.0-5.0); HEMATOCRIT 36.6 % (37.0-47.0); HEMOGLOBIN 11.8 g/dL (11.5-16.5); LYMPHOCYTES ABSOLUTE AUTO 0.84 K/uL (1.50-4.00); LYMPHOCYTES PERCENT AUTO 11.8 % (20.0-40.0); MEAN CORPUSCULAR HEMOGLOBIN 29.8 pg (27.0-32.0); MEAN CORPUSCULAR HGB CONC 32.2 g/dL (31.0-35.0); MEAN CORPUSCULAR VOLUME 92 fL (76-96); MONOCYTES ABSOLUTE AUTO 0.72 K/uL (0.20-0.80); MONOCYTES PERCENT AUTO 10.1 % (3.0-10.0); NEUTROPHILS ABSOLUTE AUTO 5.42 K/uL (2.00-7.50); NEUTROPHILS PERCENT AUTO 76.2 % (45.0-70.0); PLATELET COUNT,PLT 271 K/uL (150-500); RED BLOOD CELL COUNT 3.96 M/uL (3.80-5.80); RED CELL DISTRIBUTION WIDTH 13.5 % (11.0-16.0); WHITE BLOOD CELL COUNT,WBC 7.1 K/uL (4.0-11.0)
[2023-08-04 15:05] LABS: ALBUMIN 3.5 g/dL (3.4-5.0); ANION GAP 12.8 mmol/L (5.0-15.0); BILIRUBIN TOTAL 0.2 mg/dL (0.0-1.0); BUN/CREATININE RATIO 16.7 (6-25); CALCIUM 8.8 mg/dL (8.5-10.1); CARBON DIOXIDE,CO2 26.8 mmol/L (21.0-32.0); CREATININE 0.72 mg/dL (0.55-1.02); EST CRCL DRUG DOSING (CG) 92.38 mL/min; POTASSIUM,K 3.6 mmol/L (3.5-5.1)
[2023-08-04] MEDS ORDERED: HYDROmorphone 2 MG/ML Syringe ONE (15:23)
[2023-08-04] MEDS: HYDROmorphone 2 MG/ML Syringe IVPUSH PRN ×2 (15:24→17:04)
[2023-08-04 16:12] VITALS: BP 110/75; PULSE 107
== END 2023-08-04 16:58 | disposition home or self-care (01) ==
LOC: LB.ED 13:46
DX: R10.9 Unspecified abdominal pain (principal); F11.20 Opioid dependence, uncomplicated; Z88.5 Allergy status to narcotic agent
CPT/HCPCS: 36415; 80053; 83690; 85025; 96374; 96375; 96376; 99284-25; A9270-GY; J1170; J1885; J7030

== ENCOUNTER 2023-08-19 08:14 | Emergency (ER) | payer BC ==
[2023-08-19] MEDS ORDERED: Sodium Chloride 0.9% 1,000 ML IV ONE (08:47)
[2023-08-19] MEDS ORDERED: Ondansetron 4 MG/2 ML SDV IVPUSH ONE (08:47)
[2023-08-19] MEDS ORDERED: Ketorolac 30 MG/ML SDV IVPUSH ONE (08:52)
[2023-08-19 09:00] LABS: BASOPHILS ABSOLUTE AUTO 0.02 K/uL (0.02-0.10); BASOPHILS PERCENT AUTO 0.2 % (0.0-0.5); EOSINOPHILS ABSOLUTE AUTO 0.03 K/uL (0.04-0.40); EOSINOPHILS PERCENT AUTO 0.3 % (1.0-5.0); HEMATOCRIT 39.2 % (37.0-47.0); HEMOGLOBIN 12.5 g/dL (11.5-16.5); LYMPHOCYTES ABSOLUTE AUTO 1.91 K/uL (1.50-4.00); LYMPHOCYTES PERCENT AUTO 19.9 % (20.0-40.0); MEAN CORPUSCULAR HEMOGLOBIN 29.5 pg (27.0-32.0); MEAN CORPUSCULAR HGB CONC 31.9 g/dL (31.0-35.0); MEAN CORPUSCULAR VOLUME 93 fL (76-96); MEAN PLATELET VOLUME 9.5 fL (6.0-10.0); MONOCYTES PERCENT AUTO 9.4 % (3.0-10.0); NEUTROPHILS ABSOLUTE AUTO 6.72 K/uL (2.00-7.50); NEUTROPHILS PERCENT AUTO 70.2 % (45.0-70.0); PLATELET COUNT,PLT 255 K/uL (150-500); RED BLOOD CELL COUNT 4.24 M/uL (3.80-5.80); RED CELL DISTRIBUTION WIDTH 13.9 % (11.0-16.0); WHITE BLOOD CELL COUNT,WBC 9.6 K/uL (4.0-11.0)
[2023-08-19 09:22] LABS: A/G RATIO 1.1 (0.8-2.0); ALBUMIN 3.6 g/dL (3.4-5.0); ANION GAP 13.5 mmol/L (5.0-15.0); BILIRUBIN TOTAL 0.6 mg/dL (0.0-1.0); BUN/CREATININE RATIO 12.7 (6-25); CALCIUM 9.2 mg/dL (8.5-10.1); CARBON DIOXIDE,CO2 25.7 mmol/L (21.0-32.0); CREATININE 0.71 mg/dL (0.55-1.02); EST CRCL DRUG DOSING (CG) 93.68 mL/min; POTASSIUM,K 3.2 mmol/L (3.5-5.1); PROTEIN TOTAL,TP 6.9 g/dL (6.4-8.2)
[2023-08-19] MEDS ORDERED: HYDROmorphone 2 MG/ML Syringe ONE (10:03)
[2023-08-19] MEDS ORDERED: Naloxone 2 MG/2 ML Syringe IVPUSH PRN (10:03)
[2023-08-19] MEDS ORDERED: HYDROmorphone 2 MG/ML Syringe IVPUSH ONE ×2 (10:03)
[2023-08-19 10:06] LABS: APPEARANCE,URINE CLEAR (CLEAR); BILIRUBIN,URINE NEGATIVE (NEGATIVE); COLOR,URINE YELLOW; GLUCOSE,URINE NEGATIVE (NEGATIVE); KETONES,URINE NEGATIVE (NEGATIVE); LEUKOCYTE ESTERASE,URINE NEGATIVE (NEGATIVE); NITRITE,URINE NEGATIVE (NEGATIVE); OCCULT BLOOD,URINE NEGATIVE (NEGATIVE); PH,URINE 6.5 (5.0-8.0); PROTEIN,URINE NEGATIVE (NEGATIVE); UROBILINOGEN,URINE 0.2 E.U./dL (0.2-1.0)
[2023-08-19 10:10] LABS: BACTERIA,URINE FEW /HPF; MUCUS,URINE MODERATE /HPF; RBC,URINE NOT SEEN /HPF; SQUAMOUS EPITHELIAL CELLS,UR FEW /HPF; WBC,URINE 0-5 /HPF
[2023-08-19 10:56] VITALS: BP 110/78; PULSE 83
== END 2023-08-19 10:45 | disposition home or self-care (01) ==
LOC: LB.ED 08:14
DX: R10.84 Generalized abdominal pain (principal); I10 Essential (primary) hypertension; Z79.899 Other long term (current) drug therapy; Z88.5 Allergy status to narcotic agent
CPT/HCPCS: 36415; 74019; 80053; 81001; 83605; 83690; 85025; 96361; 96374; 96375; 99284; J1170; J1885; J2405; J7030